=== PATIENT | male | born 1950 | race American Indian/Alaskan Native ===

== ENCOUNTER 2019-02-20 20:13 | Emergency (ER) | payer MEDICARE, OTHER ==
--- NOTE | 2019-02-20 20:43 | Event Note ---
ED Screening Note Date of service: 02/20/19 Time: 20:40 ED Screening Note: Pt complains of urinary retention x 7 hours he denies hx of BPH or oother prostate/bladder issues he states he has been dribbling with urination since 2 am last night denies hematuria +abdominal pain and distension This initial assessment/diagnostic orders/clinical plan/treatment(s) is/are subject to change based on patients health status, clinical progression and re- assessment by fellow clinical providers in the ED. Further treatment and workup at subsequent clinical providers discretion. Patient/guardian urged not to elope from the ED as their condition may be serious if not clinically assessed and managed. Initial orders include: bladder scan labs cath
[2019-02-20] MEDS ORDERED: oxyCODONE /ACETAMINOPHEN 5-325MG TAB PO ONE (20:47)
[2019-02-20 21:17] LABS: Basophils % (Auto) 0.3 % (0.0-1.8); Eosinophils % (Auto) 0.1 % (0.0-4.3); Hematocrit 36.9 % (35.5-45.6); Hemoglobin 12.4 gm/dl (11.8-15.2); Lymphocytes # (Auto) 0.4 K/mm3 (1.2-5.4); Lymphocytes % (Auto) 5.1 % (13.4-35.0); Mean Corpuscular HGB Conc 34 % (32-34); Mean Corpuscular Volume 86 fl (84-94); Monocytes # (Auto) 0.4 K/mm3 (0.0-0.8); Monocytes % (Auto) 5.8 % (0.0-7.3); Platelet Count 237 K/mm3 (140-440); Red Blood Count 4.29 M/mm3 (3.65-5.03); Red Cell Distribution Width 17.3 % (13.2-15.2)
[2019-02-20 21:32] LABS: Alanine Aminotransferase 17 units/L (7-56); Albumin 4.3 g/dL (3.9-5); BUN/Creatinine Ratio 14; Blood Urea Nitrogen 18 mg/dL (9-20); Calcium 9.6 mg/dL (8.4-10.2); Hemolysis Index 15
--- NOTE | 2019-02-21 00:20 | Emergency Department Report ---
ED Male HPI - General Chief complaint: Abdominal Pain Stated complaint: ABDOMINAL PAIN Time Seen by Provider: 02/20/19 20:37 Source: patient Mode of arrival: Wheelchair Limitations: No Limitations - History of Present Illness Initial comments: Patient is a 69-year-old male who states that early this morning he was having some urinary frequency with only a small amount of urine being able to past at a time. Patient states that approximately 1 PM he stopped being able to pass urine and several hours later started having severe lower abdominal pain and distention. Patient denies nausea vomiting diarrhea fevers or chills. Location: abdomen Radiation: none Severity scale (0 -10): 7 Consistency: constant - Related Data Previous Rx's Medication Instructions Recorded Last Taken Type Acetaminophen [Acetaminophen TAB] 325 mg PO Q6H PRN #30 tablet 02/25/17 Unknown Rx Amoxicillin/Potassium Clav 1 each PO BID #4 day 02/25/17 Unknown Rx [Augmentin 875-125 Tablet] Furosemide [Lasix TAB] 40 mg PO QDAY #30 tablet 02/25/17 Unknown Rx Nicotine [Habitrol] 14 mg TD QDAY #7 patch 02/25/17 Unknown Rx Pantoprazole [Protonix TAB] 40 mg PO QDAY #30 tablet 02/25/17 Unknown Rx Spironolactone [Aldactone] 25 mg PO QDAY #30 day 02/25/17 Unknown Rx carvediloL [Coreg] 3.125 mg PO BID #60 tablet 02/25/17 Unknown Rx lisinopriL [Zestril TAB] 2.5 mg PO QDAY #30 day 02/25/17 Unknown Rx Ciprofloxacin HCl [Ciprofloxacin 500 mg PO Q12HR #14 tab 02/21/19 Unknown Rx TAB] Tamsulosin [Flomax] 0.4 mg PO QHS #20 cap 02/21/19 Unknown Rx Allergies Allergy/AdvReac Type Severity Reaction Status Date / Time No Known Allergies Allergy Verified 02/22/17 08:28 ED Review of Systems ROS: Stated complaint: ABDOMINAL PAIN Other details as noted in HPI Comment: All other systems reviewed and negative ED Past Medical Hx - Past Medical History Previous Medical History?: Yes Hx Hypertension: Yes Additional medical history: GOUT - Surgical History Past Surgical History?: Yes Additional Surgical History: RT KNEE SURGURY 1995 - Social History Smoking Status: Current Every Day Smoker Substance Use Type: Alcohol - Medications Home Medications: Home Medications Medication Instructions Recorded Confirmed Last Taken Type Acetaminophen [Acetaminophen TAB] 325 mg PO Q6H PRN #30 tablet 02/25/17 Unknown Rx Amoxicillin/Potassium Clav 1 each PO BID #4 day 02/25/17 Unknown Rx [Augmentin 875-125 Tablet] Furosemide [Lasix TAB] 40 mg PO QDAY #30 tablet 02/25/17 Unknown Rx Nicotine [Habitrol] 14 mg TD QDAY #7 patch 02/25/17 Unknown Rx Pantoprazole [Protonix TAB] 40 mg PO QDAY #30 tablet 02/25/17 Unknown Rx Spironolactone [Aldactone] 25 mg PO QDAY #30 day 02/25/17 Unknown Rx carvediloL [Coreg] 3.125 mg PO BID #60 tablet 02/25/17 Unknown Rx lisinopriL [Zestril TAB] 2.5 mg PO QDAY #30 day 02/25/17 Unknown Rx Ciprofloxacin HCl [Ciprofloxacin 500 mg PO Q12HR #14 tab 02/21/19 Unknown Rx TAB] Tamsulosin [Flomax] 0.4 mg PO QHS #20 cap 02/21/19 Unknown Rx ED Physical Exam - General Limitations: No Limitations General appearance: alert, in no apparent distress - Head Head exam: Present: atraumatic, normocephalic - Eye Eye exam: Present: normal appearance, PERRL, EOMI - ENT ENT exam: Present: mucous membranes moist - Neck Neck exam: Present: normal inspection - Respiratory Respiratory exam: Present: normal lung sounds bilaterally. Absent: respiratory distress, wheezes, rales, rhonchi - Cardiovascular Cardiovascular Exam: Present: regular rate, normal rhythm, normal heart sounds. Absent: systolic murmur, diastolic murmur, rubs, gallop - GI/Abdominal GI/Abdominal exam: Present: soft, tenderness (suprapubic), normal bowel sounds. Absent: distended, guarding, rebound - Rectal Rectal exam: Present: deferred - Extremities Exam Extremities exam: Present: normal inspection - Back Exam Back exam: Present: normal inspection - Neurological Exam Neurological exam: Present: alert, oriented X3 - Psychiatric Psychiatric exam: Present: normal affect, normal mood - Skin Skin exam: Present: warm, dry, intact, normal color. Absent: rash ED Course Vital Signs 02/20/19 20:18 Temperature 97.9 F Pulse Rate 104 H Respiratory 18 Rate Blood Pressure 191/102 O2 Sat by Pulse 98 Oximetry ED Medical Decision Making - Lab Data Result diagrams: 02/20/19 20:59 02/20/19 20:59 - Medical Decision Making Patient is 69-year-old male who is presenting with urinary retent ion. Patient had a Palmer catheter placed here in the emergency department and 1200 mL of clear urine was drained. Patient has had a dramatic improvement of his discomfort. Patient be given a leg bag and DC'd home. Patient's kidney function is within normal limits. Critical care attestation.: If time is entered above; I have spent that time in minutes in the direct care of this critically ill patient, excluding procedure time. ED Disposition Clinical Impression: Acute urinary retention Disposition: DC-01 TO HOME OR SELFCARE Is pt being admited?: No Does the pt Need Aspirin: No Condition: Stable Instructions: Urinary Retention in Men (ED) Referrals: LUIGI DELGADILLO MD [Staff Physician] - 3-5 Days Time of Disposition: 00:20
[2019-02-21 01:02] LABS: Bacteria,Urine 1+ /HPF (Negative); Bilirubin,Urine NEG (Negative); Blood,Urine LG (Negative); Color,Urine Yellow (Yellow); Protein,Urine <15 mg/dL mg/dL (Negative); Urobilinogen,Urine < 2.0 mg/dL (<2.0)
[2019-02-21 01:11] VITALS: BP 148/85
== END 2019-02-21 01:15 | disposition home or self-care (01) ==
LOC: ED 20:13
DX: R33.8 Other retention of urine (principal); I10 Essential (primary) hypertension; F17.200 Nicotine dependence, unspecified, uncomplicated; Z98.890 Other specified postprocedural states; Z79.899 Other long term (current) drug therapy
CPT/HCPCS: 36415; 51702; 80053; 81001; 83690; 85025

== ENCOUNTER 2020-03-25 06:46 | Emergency (ER) | payer MEDICARE, OTHER ==
--- NOTE | 2020-03-25 07:10 | Event Note ---
ED Screening Note Date of service: 03/25/20 Time: 07:09 ED Screening Note: 70-year-old -[place] male presents to the emergency room for urinary retention. Patient reports he has a history of prostate enlargement. He states his last voided was at 8 PM last night. Patient reports some pelvic distention and discomfort. This initial assessment/diagnostic orders/clinical plan/treatment(s) is/are subject to change based on patients health status, clinical progression and re-assessment by fellow clinical providers in the ED. Further treatment and workup at subsequent clinical providers discretion. Patient/guardian urged not to elope from the ED as their condition may be serious if not clinically assessed and managed. Initial orders include:
[2020-03-25 09:38] LABS: Bilirubin,Urine NEG (Negative); Blood,Urine MOD (Negative); Color,Urine Straw (Yellow); Protein,Urine <15 mg/dL mg/dL (Negative); Urobilinogen,Urine < 2.0 mg/dL (<2.0); WBC,Urine < 1.0 /HPF (0.0-6.0)
[2020-03-25 09:39] LABS: Basophils % (Auto) 0.6 % (0.0-1.8); Eosinophils % (Auto) 0.1 % (0.0-4.3); Hematocrit 41.5 % (35.5-45.6); Hemoglobin 14.2 gm/dl (11.8-15.2); Lymphocytes # (Auto) 0.8 K/mm3 (1.2-5.4); Lymphocytes % (Auto) 23.1 % (13.4-35.0); Mean Corpuscular HGB Conc 34 % (32-34); Mean Corpuscular Volume 96 fl (84-94); Monocytes # (Auto) 0.5 K/mm3 (0.0-0.8); Monocytes % (Auto) 13.8 % (0.0-7.3); Platelet Count 200 K/mm3 (140-440); Red Blood Count 4.31 M/mm3 (3.65-5.03); Red Cell Distribution Width 13.6 % (13.2-15.2)
[2020-03-25 10:01] LABS: BUN/Creatinine Ratio 11; Blood Urea Nitrogen 12 mg/dL (9-20); Calcium 9.3 mg/dL (8.4-10.2); Hemolysis Index 0
--- NOTE | 2020-03-25 10:52 | Emergency Department Report ---
ED General Adult HPI - General Chief complaint: Urogenital-Male Stated complaint: PROSTATE PUI?: No Time Seen by Provider: 03/25/20 08:29 Source: patient Mode of arrival: Ambulatory Limitations: No Limitations - History of Present Illness Initial comments: 70-year-old -[place] male presents to the emergency room for urinary retention. Patient reports he has a history of prostate enlargement. He states his last voided was at 8 PM last night. Patient reports some pelvic distention and discomfort. This is a 70-year-old man who is a poor historian. He is able to tell me that he has had previous Palmer placement for urinary retention perhaps about a year ago. I am speculating but he probably went to see a urologist who removed his Palmer after 3 days. Patient cannot identify seeing a specialist. States he has had a PSA run by his family physician. He does not know how elevated this was. He does not report any supplemental problems. After Palmer placement she had a residual volume of greater than 800 cc. He is totally relieved of his discomfort. He appears appropriate for outpatient management now. -: Gradual, hour(s) Location: abdomen Radiation: periumbillical Severity scale (0 -10): 0 Quality: aching Consistency: constant Improves with: none Worsens with: none Associated Symptoms: denies other symptoms, other (Urinary retention) Treatments Prior to Arrival: other (Flomax) - Related Data Previous Rx's Medication Instructions Recorded Last Taken Type Acetaminophen [Acetaminophen TAB] 325 mg PO Q6H PRN #30 tablet 02/25/17 Unknown Rx Amoxicillin/Potassium Clav 1 each PO BID #4 day 02/25/17 Unknown Rx [Augmentin 875-125 Tablet] Furosemide [Lasix TAB] 40 mg PO QDAY #30 tablet 02/25/17 Unknown Rx Nicotine [Habitrol] 14 mg TD QDAY #7 patch 02/25/17 Unknown Rx Pantoprazole [Protonix TAB] 40 mg PO QDAY #30 tablet 02/25/17 Unknown Rx Spironolactone [Aldactone] 25 mg PO QDAY #30 day 02/25/17 Unknown Rx carvediloL [Coreg] 3.125 mg PO BID #60 tablet 02/25/17 Unknown Rx lisinopriL [Zestril TAB] 2.5 mg PO QDAY #30 day 02/25/17 Unknown Rx Ciprofloxacin HCl [Ciprofloxacin 500 mg PO Q12HR #14 tab 02/21/19 Unknown Rx TAB] Tamsulosin [Flomax] 0.4 mg PO QHS #20 cap 02/21/19 Unknown Rx Allergies Allergy/AdvReac Type Severity Reaction Status Date / Time No Known Allergies Allergy Verified 02/22/17 08:28 ED Review of Systems ROS: Stated complaint: PROSTATE Other details as noted in HPI Constitutional: denies: chills, fever Eyes: denies: eye pain, eye discharge, vision change ENT: denies: ear pain, throat pain Respiratory: denies: cough, shortness of breath Cardiovascular: denies: chest pain, palpitations Endocrine: no symptoms reported Gastrointestinal: denies: abdominal pain, nausea, diarrhea Genitourinary: as per HPI Musculoskeletal: denies: back pain Skin: denies: rash, lesions Neurological: denies: headache, weakness Psychiatric: denies: anxiety, depression Hematological/Lymphatic: denies: easy bleeding, easy bruising ED Past Medical Hx - Past Medical History Hx Hypertension: Yes Additional medical history: GOUT - Surgical History Additional Surgical History: RT KNEE SURGURY 1995 - Social History Smoking Status: Never Smoker Substance Use Type: None - Medications Home Medications: Home Medications Medication Instructions Recorded Confirmed Last Taken Type Acetaminophen [Acetaminophen TAB] 325 mg PO Q6H PRN #30 tablet 02/25/17 Unknown Rx Amoxicillin/Potassium Clav 1 each PO BID #4 day 02/25/17 Unknown Rx [Augmentin 875-125 Tablet] Furosemide [Lasix TAB] 40 mg PO QDAY #30 tablet 02/25/17 Unknown Rx Nicotine [Habitrol] 14 mg TD QDAY #7 patch 02/25/17 Unknown Rx Pantoprazole [Protonix TAB] 40 mg PO QDAY #30 tablet 02/25/17 Unknown Rx Spironolactone [Aldactone] 25 mg PO QDAY #30 day 02/25/17 Unknown Rx carvediloL [Coreg] 3.125 mg PO BID #60 tablet 02/25/17 Unknown Rx lisinopriL [Zestril TAB] 2.5 mg PO QDAY #30 day 02/25/17 Unknown Rx Ciprofloxacin HCl [Ciprofloxacin 500 mg PO Q12HR #14 tab 02/21/19 Unknown Rx TAB] Tamsulosin [Flomax] 0.4 mg PO QHS #20 cap 01/06/20 Unknown Rx ED Physical Exam - General Limitations: No Limitations General appearance: alert, in no apparent distress - Head Head exam: Present: atraumatic, normocephalic - Eye Eye exam: Present: normal appearance. Absent: scleral icterus - ENT ENT exam: Present: mucous membranes moist - Neck Neck exam: Present: normal inspection - Respiratory Respiratory exam: Present: normal lung sounds bilaterally. Absent: respiratory distress - Cardiovascular Cardiovascular Exam: Present: regular rate, normal rhythm. Absent: systolic murmur, diastolic murmur, rubs, gallop - GI/Abdominal GI/Abdominal exam: Present: soft, normal bowel sounds. Absent: distended, tenderness, guarding, rebound, rigid - Rectal Rectal exam: Present: deferred - Extremities Exam Extremities exam: Present: normal inspection - Back Exam Back exam: Present: normal inspection - Neurological Exam Neurological exam: Present: alert, oriented X3, CN II-XII intact. Absent: motor sensory deficit - Psychiatric Psychiatric exam: Present: normal affect, normal mood - Skin Skin exam: Present: warm, dry, intact, normal color. Absent: rash ED Course Vital Signs 03/25/20 03/25/20 07:08 09:09 Temperature 98.1 F 98.1 F Pulse Rate 89 82 Respiratory 16 17 Rate Blood Pressure 127/85 Blood Pressure 137/81 [Left] O2 Sat by Pulse 98 99 Oximetry - Reevaluation(s) Reevaluation #1: Patient's potassium was mildly elevated. I think little relief of his urinary obstruction this should spontaneously resolve. Follow-up is recommended. 03/25/20 10:51 ED Medical Decision Making - Lab Data Result diagrams: 03/25/20 08:54 03/25/20 08:54 Laboratory Results - last 24 hr 03/25/20 03/25/20 03/25/20 08:50 08:54 08:54 WBC 3.3 L RBC 4.31 Hgb 14.2 Hct 41.5 MCV 96 H MCH 33 H MCHC 34 RDW 13.6 Plt Count 200 Lymph % (Auto) 23.1 Bryan % (Auto) 13.8 H Eos % (Auto) 0.1 Baso % (Auto) 0.6 Lymph # (Auto) 0.8 L Bryan # (Auto) 0.5 Eos # (Auto) 0.0 Baso # (Auto) 0.0 Seg Neutrophils % 62.4 Seg Neutrophils # 2.0 Sodium 136 L Potassium 5.1 H Chloride 102.5 Carbon Dioxide 27 Anion Gap 12 BUN 12 Creatinine 1.1 Estimated GFR > 60 BUN/Creatinine Ratio 11 Glucose 114 H Calcium 9.3 Prostate Specific Ag Urine Color Straw Urine Turbidity Clear Urine pH 5.0 Ur Specific Ezel 1.006 Urine Protein <15 mg/dl Urine Glucose (UA) Neg Urine Ketones Neg Urine Blood Mod Urine Nitrite Neg Urine Bilirubin Neg Urine Urobilinogen < 2.0 Ur Leukocyte Esterase Neg Urine WBC (Auto) < 1.0 Urine RBC (Auto) 4.0 03/25/20 08:54 WBC RBC Hgb Hct MCV MCH MCHC RDW Plt Count Lymph % (Auto) Bryan % (Auto) Eos % (Auto) Baso % (Auto) Lymph # (Auto) Bryan # (Auto) Eos # (Auto) Baso # (Auto) Seg Neutrophils % Seg Neutrophils # Sodium Potassium Chloride Carbon Dioxide Anion Gap BUN Creatinine Estimated GFR BUN/Creatinine Ratio Glucose Calcium Prostate Specific Ag 14.92 H Urine Color Urine Turbidity Urine pH Ur Specific Ezel Urine Protein Urine Glucose (UA) Urine Ketones Urine Blood Urine Nitrite Urine Bilirubin Urine Urobilinogen Ur Leukocyte Esterase Urine WBC (Auto) Urine RBC (Auto) Critical care attestation.: If time is entered above; I have spent that time in minutes in the direct care of this critically ill patient, excluding procedure time. ED Disposition Clinical Impression: Bladder outlet obstruction Disposition: -01 TO HOME OR SELFCARE Is pt being admited?: No Does the pt Need Aspirin: No Condition: Stable Instructions: Indwelling Urinary Catheter Care, Adult Additional Instructions: Your potassium was slightly elevated. I think this will improve if you increase your fluid intake. This should be rechecked as well as your kidney function by the urologist. Your prostate test was over 14. See referral to [facility]. Referrals: PRIMARY MD KEESHA [Primary Care Provider] - 3-5 Days [facility] [Provider Group] - 2-3 Days Time of Disposition: 11:06
[2020-03-25 12:03] VITALS: BP 145/86
== END 2020-03-25 12:02 | disposition home or self-care (01) ==
LOC: ED 06:46
DX: N32.0 Bladder-neck obstruction (principal); R33.9 Retention of urine, unspecified; I10 Essential (primary) hypertension; Z98.890 Other specified postprocedural states; Z79.2 Long term (current) use of antibiotics; Z79.899 Other long term (current) drug therapy
CPT/HCPCS: 36415; 51702; 80048; 81001; 84153; 85025

== ENCOUNTER 2020-10-30 08:14 | Emergency (ER) | payer MEDICARE, OTHER ==
--- NOTE | 2020-10-30 09:20 | XRay Report ---
CHEST 2 VIEWS INDICATION: dyspnea. COMPARISON: 02/22/2017. FINDINGS: Support devices: None. Heart: Within normal limits. Lungs/Pleura: Increased interstitial markings greater towards the lung bases. No significant pleura l effusion. IMPRESSION: Increased interstitial markings. Edema edema is favored over atypical infection. Signer Name: Khadar Chaves MD Signed: 10/30/2020 9:16 AM Workstation Name: [id number]
[2020-10-30 09:47] LABS: Basophils % (Auto) 0.8 % (0.0-1.8); Eosinophils # (Auto) 0.1 K/mm3 (0.0-0.4); Eosinophils % (Auto) 1.4 % (0.0-4.3); Hematocrit 37.2 % (35.5-45.6); Hemoglobin 12.8 gm/dl (11.8-15.2); Lymphocytes # (Auto) 1.1 K/mm3 (1.2-5.4); Lymphocytes % (Auto) 21.4 % (13.4-35.0); Mean Corpuscular HGB Conc 34 % (32-34); Mean Corpuscular Volume 98 fl (84-94); Monocytes # (Auto) 0.7 K/mm3 (0.0-0.8); Platelet Count 218 K/mm3 (140-440); Red Blood Count 3.81 M/mm3 (3.65-5.03); Red Cell Distribution Width 14.1 % (13.2-15.2)
[2020-10-30 10:13] LABS: BUN/Creatinine Ratio 10; Blood Urea Nitrogen 11 mg/dL (9-20); Calcium 9.2 mg/dL (8.4-10.2); Hemolysis Index 3
--- NOTE | 2020-10-30 10:27 | Emergency Department Report ---
ED Shortness of Breath HPI - General Chief Complaint: Dyspnea/Respdistress Stated Complaint: EMMANUEL Time Seen by Provider: 10/30/20 08:50 Source: patient Mode of arrival: Ambulatory Limitations: No Limitations - History of Present Illness Initial Comments: Patient is a 70-year-old F [place] male with a past medical history of hypertension, CHF and gout who is presenting with 3 consecutive nights of shortness of breath. Patient states that while laying down he feels a smothering sensation in his chest which radiates from the center chest all the way up to his neck and feels as though he cannot breathe. States he has to get up and the symptoms usually resolve within 30 minutes. Denies chest pain nausea vomiting cough cold or congestion fevers or chills. Patient states there is no exertional component or pleuritic component. No precipitating factors that the patient can do the trigger the sensation. Patient states he has a history of acid reflux as well but is not on any medications. - Related Data Previous Rx's Medication Instructions Recorded Last Taken Type Acetaminophen [Acetaminophen TAB] 325 mg PO Q6H PRN #30 tablet 02/25/17 Unknown Rx Amoxicillin/Potassium Clav 1 each PO BID #4 day 02/25/17 Unknown Rx [Augmentin 875-125 Tablet] Furosemide [Lasix TAB] 40 mg PO QDAY #30 tablet 02/25/17 Unknown Rx Nicotine [Habitrol] 14 mg TD QDAY #7 patch 02/25/17 Unknown Rx Pantoprazole [Protonix TAB] 40 mg PO QDAY #30 tablet 02/25/17 Unknown Rx Spironolactone [Aldactone] 25 mg PO QDAY #30 day 02/25/17 Unknown Rx carvediloL [Coreg] 3.125 mg PO BID #60 tablet 02/25/17 Unknown Rx lisinopriL [Zestril TAB] 2.5 mg PO QDAY #30 day 02/25/17 Unknown Rx Ciprofloxacin HCl [Ciprofloxacin 500 mg PO Q12HR #14 tab 02/21/19 Unknown Rx TAB] Tamsulosin [Flomax] 0.4 mg PO QHS #20 cap 02/21/19 Unknown Rx Dicyclomine [Bentyl] 20 mg PO QID #10 tablet 10/30/20 Unknown Rx Pantoprazole [Protonix] 40 mg PO QDAY #30 tablet 10/30/20 Unknown Rx Allergies Allergy/AdvReac Type Severity Reaction Status Date / Time No Known Allergies Allergy Verified 02/22/17 08:28 ED Review of Systems ROS: Stated complaint: EMMANUEL Other details as noted in HPI Comment: All other systems reviewed and negative ED Past Medical Hx - Past Medical History Hx Hypertension: Yes Additional medical history: GOUT - Surgical History Additional Surgical History: RT KNEE SURGURY 1995 - Social History Smoking Status: Never Smoker Substance Use Type: None - Medications Home Medications: Home Medications Medication Instructions Recorded Confirmed Last Taken Type Acetaminophen [Acetaminophen TAB] 325 mg PO Q6H PRN #30 tablet 02/25/17 Unknown Rx Amoxicillin/Potassium Clav 1 each PO BID #4 day 02/25/17 Unknown Rx [Augmentin 875-125 Tablet] Furosemide [Lasix TAB] 40 mg PO QDAY #30 tablet 02/25/17 Unknown Rx Nicotine [Habitrol] 14 mg TD QDAY #7 patch 02/25/17 Unknown Rx Pantoprazole [Protonix TAB] 40 mg PO QDAY #30 tablet 02/25/17 Unknown Rx Spironolactone [Aldactone] 25 mg PO QDAY #30 day 02/25/17 Unknown Rx carvediloL [Coreg] 3.125 mg PO BID #60 tablet 02/25/17 Unknown Rx lisinopriL [Zestril TAB] 2.5 mg PO QDAY #30 day 02/25/17 Unknown Rx Ciprofloxacin HCl [Ciprofloxacin 500 mg PO Q12HR #14 tab 02/21/19 Unknown Rx TAB] Tamsulosin [Flomax] 0.4 mg PO QHS #20 cap 02/21/19 Unknown Rx Dicyclomine [Bentyl] 20 mg PO QID #10 tablet 10/30/20 Unknown Rx Pantoprazole [Protonix] 40 mg PO QDAY #30 tablet 10/30/20 Unknown Rx ED Physical Exam - General Limitations: No Limitations General appearance: alert, in no apparent distress - Head Head exam: Present: atraumatic, normocephalic - Eye Eye exam: Present: normal appearance - ENT ENT exam: Present: mucous membranes moist - Neck Neck exam: Present: normal inspection - Respiratory Respiratory exam: Present: normal lung sounds bilaterally. Absent: respiratory distress, wheezes, rales, rhonchi - Cardiovascular Cardiovascular Exam: Present: regular rate, normal rhythm, normal heart sounds. Absent: systolic murmur, diastolic murmur, rubs, gallop - GI/Abdominal GI/Abdominal exam: Present: soft, normal bowel sounds. Absent: distended, tenderness, guarding, rebound, rigid - Rectal Rectal exam: Present: deferred - Extremities Exam Extremities exam: Present: normal inspection - Back Exam Back exam: Present: normal inspection - Neurological Exam Neurological exam: Present: alert, oriented X3 - Psychiatric Psychiatric exam: Present: normal affect, normal mood - Skin Skin exam: Present: warm, dry, intact, normal color. Absent: rash ED Course Vital Signs 10/30/20 08:23 Temperature 98.5 F Pulse Rate 106 H Respiratory 20 Rate Blood Pressure 122/86 [Left] O2 Sat by Pulse 98 Oximetry ED Medical Decision Making - Lab Data Result diagrams: 10/30/20 09:30 10/30/20 09:30 Lab Results 10/30/20 10/30/20 Range/Units 09:30 09:30 WBC 5.3 (4.5-11.0) K/mm3 RBC 3.81 (3.65-5.03) M/mm3 Hgb 12.8 (11.8-15.2) gm/dl Hct 37.2 (35.5-45.6) % MCV 98 H (84-94) fl MCH 34 H (28-32) pg MCHC 34 (32-34) % RDW 14.1 (13.2-15.2) % Plt Count 218 (140-440) K/mm3 Lymph % (Auto) 21.4 (13.4-35.0) % [place] % (Auto) 14.0 H (0.0-7.3) % Eos % (Auto) 1.4 (0.0-4.3) % Baso % (Auto) 0.8 (0.0-1.8) % Lymph # (Auto) 1.1 L (1.2-5.4) K/mm3 [place] # (Auto) 0.7 (0.0-0.8) K/mm3 Eos # (Auto) 0.1 (0.0-0.4) K/mm3 Baso # (Auto) 0.0 (0.0-0.1) K/mm3 Seg Neutrophils % 62.4 (40.0-70.0) % Seg Neutrophils # 3.3 (1.8-7.7) K/mm3 Sodium 139 (137-145) mmol/L Potassium 4.3 (3.6-5.0) mmol/L Chloride 107.5 H (98-107) mmol/L Carbon Dioxide 28 (22-30) mmol/L Anion Gap 8 mmol/L BUN 11 (9-20) mg/dL Creatinine 1.1 (0.8-1.3) mg/dL Estimated GFR > 60 ml/min BUN/Creatinine Ratio 10 % Glucose 108 H (75-100) mg/dL Calcium 9.2 (8.4-10.2) mg/dL Troponin T < 0.010 (0.00-0.029) ng/mL - EKG Data -: EKG Interpreted by Ca - EKG Data 10/30/20 10:26 EKG shows a sinus tachycardia rate of 104. Grawn is leftward. Evidence of a right bundle branch block. LVH. T wave inversions in the lateral leads. Q waves inferiorly. Was compared to EKG from 2018 and there was quite a bit of artifact with that EKG but no significant changes. - Radiology Data Ordering Physician: BECKY LANE MD Date of Service: 10/30/20 Procedure(s): XR chest routine 2V Accession Number(s): [id number] cc: BECKY LANE MD Fluoro Time In Minutes: CHEST 2 VIEWS INDICATION: dyspnea. COMPARISON: 02/22/2017. FINDINGS: Support devices: None. Heart: Within normal limits. Lungs/Pleura: Increased interstitial markings greater towards the lung bases. No significant pleural effusion. IMPRESSION: Increased interstitial markings. Edema edema is favored over atypical infection. Signer Name: Khadar Chaves MD Signed: 10/30/2020 9:16 AM Workstation Name: [id number] - Medical Decision Making Patient is a 70-year-old F [place] male who is presenting with shortness of breath. Top of the differential is GERD. Patient is stating that he has a strange sensation in his throat when this occurs and occurs while laying flat. States that the symptoms can last up to 30 minutes but he states that usually it quite a bit less. Second differential be congestive heart failure. He does have some mild pulmonary edema on chest x-ray but his oxygen levels normal lungs are clear. Patient is on a diuretic and continue with his current regimen. We will add Protonix the patient will be given outpatient follow-up with his primary care physician. Critical care attestation.: If time is entered above; I have spent that time in minutes in the direct care of this critically ill patient, excluding procedure time. ED Disposition Clinical Impression: GERD (gastroesophageal reflux disease) Qualifiers: Esophagitis presence: without esophagitis Qualified Code(s): K21.9 - Gastro- esophageal reflux disease without esophagitis Pulmonary edema Qualifiers: Chronicity: chronic Qualified Code(s): J81.1 - Chronic pulmonary edema Disposition: 01 HOME / SELF CARE / HOMELESS Is pt being admited?: No Does the pt Need Aspirin: No Condition: Stable Instructions: Pulmonary Edema (ED), Gastroesophageal Reflux Disease, Adult, [id number] Additional Instructions: Please follow-up with your primary care physician. Please continue to take your water pill as there is a small amount of fluid on your lungs. This is similar to/less than the amount that you have had in the past. Time of Disposition: 10:33
[2020-10-30 12:02] VITALS: BP 133/94
--- NOTE | 2020-10-31 10:09 | Electrocardiograph Report ---
[facility] Test Date: 2020-10-30 Test Time: 08:39:37 Pat Name: CORRINE ISAAC Department: Room: Gender: M Inventory Control Assistant: JENNIFER : 1950 Requested By: BECKY LANE Order Number: [id number] Reading MD: Mike Carvalho Measurements Intervals [place] Rate: 104 P: 61 [place]: 127 QRS: -65 QRSD: 122 T: 103 QT: 378 QTc: 493 Interpretive Statements Sinus tachycardia Atrial premature complexes Left atrial enlargement RBBB and LAFB Left ventricular hypertrophy No previous ECG available for comparison Electronically Signed On 10-31-2020 10:09:08 EDT by Mike Carvalho
== END 2020-10-30 11:58 | disposition home or self-care (01) ==
LOC: ED 08:14
DX: K21.9 Gastro-esophageal reflux disease without esophagitis (principal); J81.1 Chronic pulmonary edema; I10 Essential (primary) hypertension
CPT/HCPCS: 36415; 71046; 80048; 84484; 85025; 93005; 99283

== ENCOUNTER 2021-01-14 13:19 | Emergency (ER) | payer MEDICARE, OTHER ==
--- NOTE | 2021-01-14 14:36 | Emergency Department Report ---
ED General Adult HPI - General Chief complaint: Dizziness Stated complaint: FEELING FUNNY Time Seen by Provider: 01/14/21 13:36 Source: patient Mode of arrival: Ambulatory Limitations: No Limitations - History of Present Illness Initial comments: The patient presents to the emergency department the chief complaint of shortness of breath that has been present for the last 2 days. Patient states that he had a pacemaker placed approximately 3 weeks ago. Patient states he is short of breath with walking or with laying down. Patient denies any chest pain or abdominal pain. -: Sudden Severity scale (0 -10): 0 Consistency: intermittent Improves with: none Worsens with: movement Associated Symptoms: denies other symptoms Treatments Prior to Arrival: none - Related Data Home Medications Medication Instructions Recorded Confirmed Last Taken Eplerenone [Inspra] 25 mg PO QDAY 12/10/20 12/10/20 12/07/20 Finasteride [Proscar] 5 mg PO QDAY 12/10/20 12/10/20 12/07/20 Previous Rx's Medication Instructions Recorded Last Taken Type Tamsulosin [Flomax] 0.4 mg PO QHS #20 cap 02/21/19 12/09/20 22:36 Rx Colchicine [Colcrys] 0.6 mg PO BID #20 tab 11/19/20 12/09/20 22:35 Rx Furosemide [Lasix TAB] 20 mg PO BID@0600,1800 30 Days #60 12/12/20 Unknown Rx tablet lisinopriL [Zestril TAB] 2.5 mg PO QDAY #15 tablet 12/12/20 Unknown Rx Allergies Allergy/AdvReac Type Severity Reaction Status Date / Time No Known Allergies Allergy Verified 12/10/20 12:11 ED Review of Systems ROS: Stated complaint: FEELING FUNNY Other details as noted in HPI Comment: All other systems reviewed and negative Constitutional: denies: chills, fever Eyes: denies: eye pain, eye discharge, vision change ENT: denies: ear pain, throat pain Respiratory: denies: cough, shortness of breath, wheezing Cardiovascular: denies: chest pain, palpitations Endocrine: no symptoms reported Gastrointestinal: denies: abdominal pain, nausea, diarrhea Genitourinary: denies: urgency, dysuria Musculoskeletal: denies: back pain, joint swelling, arthralgia Skin: denies: rash, lesions Neurological: denies: headache, weakness, paresthesias Psychiatric: denies: anxiety, depression Hematological/Lymphatic: denies: easy bleeding, easy bruising ED Past Medical Hx - Past Medical History Hx Hypertension: Yes Hx Heart Attack/AMI: No Hx Congestive Heart Failure: Yes Hx Diabetes: No Hx Liver Disease: No Hx Renal Disease: No Hx Asthma: No Hx COPD: No Additional medical history: GOUT - Surgical History Hx Pacemaker: No Hx Internal Defibrillator: Yes Additional Surgical History: RT KNEE SURGURY 1995. left wrist - Social History Smoking Status: Never Smoker - Medications Home Medications: Home Medications Medication Instructions Recorded Confirmed Last Taken Type Tamsulosin [Flomax] 0.4 mg PO QHS #20 cap 02/21/19 12/10/20 12/09/20 22:36 Rx Colchicine [Colcrys] 0.6 mg PO BID #20 tab 11/19/20 12/10/20 12/09/20 22:35 Rx Eplerenone [Inspra] 25 mg PO QDAY 12/10/20 12/10/20 12/07/20 History Finasteride [Proscar] 5 mg PO QDAY 12/10/20 12/10/20 12/07/20 History Furosemide [Lasix TAB] 20 mg PO BID@0600,1800 30 Days #60 12/12/20 Unknown Rx tablet lisinopriL [Zestril TAB] 2.5 mg PO QDAY #15 tablet 12/12/20 Unknown Rx ED Physical Exam - General Limitations: No Limitations General appearance: alert, in no apparent distress - Head Head exam: Present: atraumatic, normocephalic - Eye Eye exam: Present: normal appearance - ENT ENT exam: Present: mucous membranes moist - Neck Neck exam: Present: normal inspection - Respiratory Respiratory exam: Present: normal lung sounds bilaterally. Absent: respiratory distress - Cardiovascular Cardiovascular Exam: Present: normal rhythm, tachycardia. Absent: systolic murmur, diastolic murmur, rubs, gallop - GI/Abdominal GI/Abdominal exam: Present: soft, normal bowel sounds. Absent: distended, tenderness - Rectal Rectal exam: Present: deferred - Extremities Exam Extremities exam: Present: normal inspection - Back Exam Back exam: Present: normal inspection - Neurological Exam Neurological exam: Present: alert, oriented X3, CN II-XII intact. Absent: motor sensory deficit - Psychiatric Psychiatric exam: Present: normal affect, normal mood - Skin Skin exam: Present: warm, dry, intact, normal color. Absent: rash ED Course Vital Signs 01/14/21 01/14/21 01/14/21 13:23 13:32 13:45 Temperature 97.6 F Pulse Rate 50 L 113 H 113 H Pulse Rate [ Anterior Bilateral Throughout] Respiratory 16 20 16 Rate Respiratory Rate [Anterior Bilateral Throughout] Blood Pressure 109/79 118/68 O2 Sat by Pulse 97 99 Oximetry 01/14/21 01/14/21 01/14/21 14:00 14:31 14:45 Temperature Pulse Rate 112 H 109 H 113 H Pulse Rate [ Anterior Bilateral Throughout] Respiratory 21 18 13 Rate Respiratory Rate [Anterior Bilateral Throughout] Blood Pressure 104/79 104/79 104/79 O2 Sat by Pulse 99 100 97 Oximetry 01/14/21 01/14/21 01/14/21 16:25 16:31 16:45 Temperature Pulse Rate 115 H 118 H 107 H Pulse Rate [ Anterior Bilateral Throughout] Respiratory 25 H 22 33 H Rate Respiratory Rate [Anterior Bilateral Throughout] Blood Pressure 104/79 104/79 104/79 O2 Sat by Pulse 99 96 Oximetry 01/14/21 01/14/21 01/14/21 17:00 17:15 17:31 Temperature Pulse Rate 111 H 108 H 104 H Pulse Rate [ Anterior Bilateral Throughout] Respiratory 20 26 H 16 Rate Respiratory Rate [Anterior Bilateral Throughout] Blood Pressure 114/79 114/79 107/79 O2 Sat by Pulse 98 98 99 Oximetry 01/14/21 01/14/21 01/14/21 17:45 18:01 18:15 Temperature Pulse Rate 108 H 107 H 105 H Pulse Rate [ Anterior Bilateral Throughout] Respiratory 17 12 26 H Rate Respiratory Rate [Anterior Bilateral Throughout] Blood Pressure 114/79 113/78 107/79 O2 Sat by Pulse 98 99 99 Oximetry 01/14/21 01/14/21 18:31 19:06 Temperature Pulse Rate 111 H Pulse Rate [ 55 L Anterior Bilateral Throughout] Respiratory 17 Rate Respiratory 16 Rate [Anterior Bilateral Throughout] Blood Pressure 115/79 O2 Sat by Pulse 96 Oximetry ED Medical Decision Making - Lab Data Result diagrams: 01/14/21 14:02 01/14/21 14:01 Lab Results 01/14/21 01/14/21 01/14/21 Range/Units 14:01 14:01 14:01 WBC (4.5-11.0) K/mm3 RBC (3.65-5.03) M/mm3 Hgb (11.8-15.2) gm/dl Hct (35.5-45.6) % MCV (84-94) fl MCH (28-32) pg MCHC (32-34) % RDW (13.2-15.2) % Plt Count (140-440) K/mm3 Lymph % (Auto) (13.4-35.0) % Banner % (Auto) (0.0-7.3) % Eos % (Auto) (0.0-4.3) % Baso % (Auto) (0.0-1.8) % Lymph # (Auto) (1.2-5.4) K/mm3 Banner # (Auto) (0.0-0.8) K/mm3 Eos # (Auto) (0.0-0.4) K/mm3 Baso # (Auto) (0.0-0.1) K/mm3 Seg Neutrophils % (40.0-70.0) % Seg Neutrophils # (1.8-7.7) K/mm3 PT 14.8 (12.2-14.9) Sec. INR 1.05 (0.87-1.13) APTT 33.2 (24.2-36.6) Sec. Sodium 140 (137-145) mmol/L Potassium 4.3 (3.6-5.0) mmol/L Chloride 104.0 (98-107) mmol/L Carbon Dioxide 26 (22-30) mmol/L Anion Gap 14 mmol/L BUN 21 H (9-20) mg/dL Creatinine 1.4 H (0.8-1.3) mg/dL Estimated GFR > 60 ml/min BUN/Creatinine Ratio 15 % Glucose 100 (75-100) mg/dL Calcium 9.4 (8.4-10.2) mg/dL Phosphorus 3.00 (2.5-4.5) mg/dL Magnesium 2.00 (1.7-2.3) mg/dL Total Bilirubin 0.80 (0.1-1.2) mg/dL AST 13 (5-40) units/L ALT 17 (7-56) units/L Alkaline Phosphatase 142 H (35-129) units/L Troponin T < 0.010 (0.00-0.029) ng/mL NT-Pro-B Natriuret Pep 4863 H (0-900) pg/mL Total Protein 7.2 (6.3-8.2) g/dL Albumin 3.8 L (3.9-5) g/dL Albumin/Globulin Ratio 1.1 % 01/14/21 Range/Units 14:02 WBC 5.0 (4.5-11.0) K/mm3 RBC 4.23 (3.65-5.03) M/mm3 Hgb 12.3 (11.8-15.2) gm/dl Hct 38.3 (35.5-45.6) % MCV 91 (84-94) fl MCH 29 (28-32) pg MCHC 32 (32-34) % RDW 15.8 H (13.2-15.2) % Plt Count 153 (140-440) K/mm3 Lymph % (Auto) 37.8 H (13.4-35.0) % Banner % (Auto) 12.9 H (0.0-7.3) % Eos % (Auto) 1.3 (0.0-4.3) % Baso % (Auto) 0.4 (0.0-1.8) % Lymph # (Auto) 1.9 (1.2-5.4) K/mm3 Banner # (Auto) 0.6 (0.0-0.8) K/mm3 Eos # (Auto) 0.1 (0.0-0.4) K/mm3 Baso # (Auto) 0.0 (0.0-0.1) K/mm3 Seg Neutrophils % 47.6 (40.0-70.0) % Seg Neutrophils # 2.4 (1.8-7.7) K/mm3 PT (12.2-14.9) Sec. INR (0.87-1.13) APTT (24.2-36.6) Sec. Sodium (137-145) mmol/L Potassium (3.6-5.0) mmol/L Chloride (98-107) mmol/L Carbon Dioxide (22-30) mmol/L Anion Gap mmol/L BUN (9-20) mg/dL Creatinine (0.8-1.3) mg/dL Estimated GFR ml/min BUN/Creatinine Ratio % Glucose (75-100) mg/dL Calcium (8.4-10.2) mg/dL Phosphorus (2.5-4.5) mg/dL Magnesium (1.7-2.3) mg/dL Total Bilirubin (0.1-1.2) mg/dL AST (5-40) units/L ALT (7-56) units/L Alkaline Phosphatase (35-129) units/L Troponin T (0.00-0.029) ng/mL NT-Pro-B Natriuret Pep (0-900) pg/mL Total Protein (6.3-8.2) g/dL Albumin (3.9-5) g/dL Albumin/Globulin Ratio % - EKG Data -: EKG Interpreted by Me EKG shows normal: sinus rhythm Rate: tachycardia - Radiology Data Radiology results: report reviewed - Medical Decision Making Due to the patient's tachycardia and shortness of breath a CTA was done CTA was negative for PE does show emphysema-like changes Spoke to the patient's patient care associate who suggested that the patient received 40 mg of IV Lasix in the emergency department to take 20 mg at home twice daily Discussed CT findings with the patient he tells me that he has never been told that he has COPD but states that he stopped smoking 5 years ago and has smoked for greater than 30 years Patient had improvement of his symptoms after breathing treatment and Lasix Discussed the need to follow-up pulmonology as well as cardiology Critical Care Time: Yes Critical care time in (mins) excluding proc time.: 35 Critical care attestation.: If time is entered above; I have spent that time in minutes in the direct care of this critically ill patient, excluding procedure time. ED Disposition Clinical Impression: Dyspnea Disposition: 01 HOME / SELF CARE / HOMELESS Is pt being admited?: No Does the pt Need Aspirin: No Condition: Stable Instructions: Shortness of Breath, Adult Additional Instructions: return if worse Referrals: CLEO PRIETO MD [Primary Care Provider] - 3-5 Days RAVI SORENSON MD [Staff Physician] - 3-5 Days DANK BALDERRAMA MD [Staff Physician] - 3-5 Days Time of Disposition: 19:27
--- NOTE | 2021-01-14 14:46 | XRay Report ---
CHEST 1 VIEW INDICATION: sob. COMPARISON: 12/12/2019 FINDINGS: Support devices: Single lead pacemaker device remains in the same position Heart: Stable borderline to mild cardiomegaly Lungs/Pleura: The lungs remain clear with no evidence for infiltrate, pleural effusion or pneumothora x Additional findings: None. IMPRESSION: Stable borderline heart size. Lungs clear. No change since 12/11/2020. Signer Name: Zane Soto Jr, MD Signed: 01/14/2021 2:42 PM Workstation Name: [id number]
[2021-01-14] MEDS ORDERED: niCARdipine DRIP 40 MG/200 ML BAG IV ONE (14:48)
[2021-01-14] MEDS ORDERED: ALTEPLASE 100 MG INJ KIT IV ONE ×2 (14:50)
[2021-01-14] MEDS ORDERED: SODIUM CHLORIDE 0.9% 50 ML IVPB IV ONE (14:50)
[2021-01-14 14:55] LABS: Basophils % (Auto) 0.4 % (0.0-1.8); Eosinophils # (Auto) 0.1 K/mm3 (0.0-0.4); Eosinophils % (Auto) 1.3 % (0.0-4.3); Hematocrit 38.3 % (35.5-45.6); Hemoglobin 12.3 gm/dl (11.8-15.2); Lymphocytes # (Auto) 1.9 K/mm3 (1.2-5.4); Lymphocytes % (Auto) 37.8 % (13.4-35.0); Mean Corpuscular HGB Conc 32 % (32-34); Mean Corpuscular Volume 91 fl (84-94); Monocytes # (Auto) 0.6 K/mm3 (0.0-0.8); Monocytes % (Auto) 12.9 % (0.0-7.3); Platelet Count 153 K/mm3 (140-440); Red Blood Count 4.23 M/mm3 (3.65-5.03); Red Cell Distribution Width 15.8 % (13.2-15.2)
[2021-01-14 14:59] LABS: Alanine Aminotransferase 17 units/L (7-56); Albumin 3.8 g/dL (3.9-5); BUN/Creatinine Ratio 15; Blood Urea Nitrogen 21 mg/dL (9-20); Calcium 9.4 mg/dL (8.4-10.2); Hemolysis Index 1
[2021-01-14 15:06] LABS: INR 1.05 (0.87-1.13)
[2021-01-14 15:07] LABS: Partial Thromboplastin Time 33.2 Sec. (24.2-36.6)
--- NOTE | 2021-01-14 15:37 | Cat Scan Report ---
CTA chest with contrast INDICATION : PE. sob. chest pain. Omni 350 85cc. . TECHNIQUE: Axial imaging performed through the chest, with contrast bolus timing set to maximize opa cification of the pulmonary arteries. 3-plane MIP reformatted images were obtained. All CT scans at this location are performed using CT dose reduction for ALARA by means of automated exposure control. 85 mL of intravenous contrast administered. COMPARISON: CTA chest from 12/08/2020 FINDINGS: Bolus/PTE: Contrast bolus timing is adequate. There is diffuse respiratory motion artifact which sli ghtly limits the exam especially in the basilar subsegmental distribution. No filling defect is prese nt to suggest PTE. Mediastinum: Heart and great vessels appear normal. Shoddy hilar/mediastinal lymph nodes are noted with no pathologic enlargement. Lungs: There is moderate emphysema with no consolidation or pleural effusion. Upper abdomen: Limited imaging of the upper abdomen shows nothing acute. Bones: Degenerative changes in the spine with nothing acute. IMPRESSION: 1. Motion limited exam with no gross PTE identified. 2. Moderate emphysema with otherwise clear lungs. Signer Name: Tanner Perea MD Signed: 01/14/2021 3:32 PM Workstation Name: [id number]
[2021-01-14] MEDS ORDERED: FUROSEMIDE 40 MG/4 ML INJ IV ONE (17:08)
[2021-01-14] MEDS ORDERED: IPRATROPIUM/ALBUTEROL SULFATE 3 ML AMPUL.NEB IH ONE ×3 (17:08→18:51)
[2021-01-14 21:48] VITALS: BP 123/89
== END 2021-01-14 21:48 | disposition home or self-care (01) ==
LOC: ED 13:19
DX: R06.00 Dyspnea, unspecified (principal); I10 Essential (primary) hypertension; I50.9 Heart failure, unspecified; Z98.890 Other specified postprocedural states
CPT/HCPCS: 36415; 71045; 71275; 80053; 83735; 83880; 84100; 84484; 85025; 85610; 85730; 94640; 96374; 99291; J1940; Q9967; 94644

== ENCOUNTER 2021-03-10 14:03 | Emergency (ER) | payer MEDICARE, OTHER ==
[2021-03-10] MEDS ORDERED: FUROSEMIDE 40 MG/4 ML INJ IV ONE (14:53)
--- NOTE | 2021-03-10 14:53 | Emergency Department Report ---
ED Shortness of Breath HPI - General Chief Complaint: Dyspnea/Respdistress Stated Complaint: EMMANUEL Time Seen by Provider: 03/10/21 14:50 Source: patient Mode of arrival: Ambulatory Limitations: No Limitations - History of Present Illness Initial Comments: Patient presents with shortness of breath. This is been ongoing and progressive for him. The last couple of days, his symptoms worsened. He is supposed to see his accounts receivable clerk on Thursday but states that he just cannot sleep. He cannot lie flat because he becomes short of breath. He actually describes orthopnea. Patient is on a diuretic. He states he has been taking it. He does not know if he has been gaining weight or not. He does not weigh himself on a regular basis. Shortness of breath again is worse at night. Is worse with exertion. He states that when he is sitting still he feels somewhat better. There is no cough or fever. - Related Data Home Medications Medication Instructions Recorded Confirmed Last Taken Eplerenone [Inspra] 25 mg PO QDAY 12/10/20 12/10/20 12/07/20 Finasteride [Proscar] 5 mg PO QDAY 12/10/20 12/10/20 12/07/20 Previous Rx's Medication Instructions Recorded Last Taken Type Tamsulosin [Flomax] 0.4 mg PO QHS #20 cap 02/21/19 12/09/20 22:36 Rx Colchicine [Colcrys] 0.6 mg PO BID #20 tab 11/19/20 12/09/20 22:35 Rx lisinopriL [Zestril TAB] 2.5 mg PO QDAY #15 tablet 12/12/20 Unknown Rx Furosemide [Lasix TAB] 60 mg PO BID@0600,1800 5 Days 03/10/21 Unknown Rx tablet Allergies Allergy/AdvReac Type Severity Reaction Status Date / Time No Known Allergies Allergy Verified 12/10/20 12:11 ED Review of Systems ROS: Stated complaint: EMMANUEL Other details as noted in HPI Comment: All other systems reviewed and negative Constitutional: denies: fever Eyes: denies: eye pain ENT: denies: throat pain Respiratory: denies: cough Cardiovascular: denies: chest pain Endocrine: denies: unexplained weight loss Gastrointestinal: denies: abdominal pain Genitourinary: denies: dysuria Musculoskeletal: denies: back pain Skin: denies: rash Neurological: denies: headache Hematological/Lymphatic: denies: easy bruising ED Past Medical Hx - Past Medical History Previous Medical History?: Yes Hx Hypertension: Yes Hx Heart Attack/AMI: No Hx Congestive Heart Failure: Yes Hx Diabetes: No Hx Liver Disease: No Hx Renal Disease: No Hx Asthma: No Hx COPD: No Additional medical history: GOUT - Surgical History Hx Pacemaker: No Hx Internal Defibrillator: Yes Additional Surgical History: RT KNEE SURGURY 1995. left wrist - Family History Family history: hypertension - Social History Smoking Status: Former Smoker (Stopped smoking cigarettes 2015) Substance Use Type: None - Medications Home Medications: Home Medications Medication Instructions Recorded Confirmed Last Taken Type Tamsulosin [Flomax] 0.4 mg PO QHS #20 cap 02/21/19 12/10/20 12/09/20 22:36 Rx Colchicine [Colcrys] 0.6 mg PO BID #20 tab 11/19/20 12/10/20 12/09/20 22:35 Rx Eplerenone [Inspra] 25 mg PO QDAY 12/10/20 12/10/20 12/07/20 History Finasteride [Proscar] 5 mg PO QDAY 12/10/20 12/10/20 12/07/20 History lisinopriL [Zestril TAB] 2.5 mg PO QDAY #15 tablet 12/12/20 Unknown Rx Furosemide [Lasix TAB] 60 mg PO BID@0600,1800 5 Days 03/10/21 Unknown Rx tablet ED Physical Exam - General Limitations: No Limitations, Other (Pulse ox noted and low. This improves with deep inspiration.) General appearance: alert, in no apparent distress - Head Head exam: Present: atraumatic, normocephalic - Eye Eye exam: Present: normal appearance, EOMI - ENT ENT exam: Present: normal orophraynx, normal external ear exam - Neck Neck exam: Present: normal inspection. Absent: meningismus - Respiratory Respiratory exam: Present: rales (Bilateral). Absent: respiratory distress - Cardiovascular Cardiovascular Exam: Present: regular rate, normal rhythm - GI/Abdominal GI/Abdominal exam: Present: soft. Absent: distended, tenderness - Extremities Exam Extremities exam: Present: normal capillary refill - Back Exam Back exam: Absent: CVA tenderness (R), CVA tenderness (L) - Neurological Exam Neurological exam: Present: alert, oriented X3, CN II-XII intact, normal gait. Absent: motor sensory deficit - Psychiatric Psychiatric exam: Present: normal affect, normal mood - Skin Skin exam: Present: warm, dry ED Course Vital Signs 03/10/21 14:52 Temperature 97.9 F Pulse Rate 67 Respiratory 16 Rate Blood Pressure 105/61 [Right] O2 Sat by Pulse 94 Oximetry - Reevaluation(s) Reevaluation #1: 03/10/21 14:53 Labs ordered. Reevaluation #2: 03/10/21 18:16 Work-up was complete and the patient was discharged ED Medical Decision Making - Lab Data Result diagrams: 03/10/21 15:54 03/10/21 15:54 Rhythm strip: Normal sinus rhythm without ectopy. Monitor observe 10 seconds. - Radiology Data Radiology results: report reviewed - Medical Decision Making Patient presented with shortness of breath and was found to have evidence of congestive heart failure. This is acute on chronic condition. Patient has an appointment to see his accounts receivable clerk. There is no evidence of STEMI or NSTEMI. He does not have elevated troponin. There is no radiographic evidence to suggest pneumonia and clinically he does not strike me as pneumonia. He has no cough or fever. There is no bilateral infiltrative process that would be concerning for COVID given his current presentation. He was treated symptomatically and empirically with increased diuretic. Critical Care Time: No Critical care attestation.: If time is entered above; I have spent that time in minutes in the direct care of this critically ill patient, excluding procedure time. ED Disposition Clinical Impression: Pleural effusion CHF exacerbation Qualifiers: Heart failure type: combined systolic and diastolic Qualified Code(s): I50.43 - Acute on chronic combined systolic (congestive) and diastolic (congestive) heart failure Disposition: HOME / SELF CARE / HOMELESS Is pt being admited?: No Condition: Stable Instructions: Heart Failure, Self Care, Heart Failure Action Plan, Pleural Effusion Additional Instructions: Avoid salt completely. Continue your home medication. Follow-up with your accounts receivable clerk tomorrow. Take your diuretics as indicated. Prescriptions: Furosemide [Lasix TAB] 60 mg PO BID@0600,1800 5 Days tablet Referrals: PRIMARY CARE, [Primary Care Provider] - 3-5 Days
--- NOTE | 2021-03-10 15:36 | XRay Report ---
CHEST 2 VIEWS INDICATION / CLINICAL INFORMATION: chf. COMPARISON: 2 views of the chest from 03/01/2021. FINDINGS: SUPPORT DEVICES: Unchanged left ICD. HEART / MEDIASTINUM: Stable. LUNGS / PLEURA: Right lower lobe airspace opacities have developed in the interval. The lungs are oth erwise clear. No significant pleural effusion. No pneumothorax. ADDITIONAL FINDINGS: No significant additional findings. IMPRESSION: Findings concerning for right lower lobe pneumonia. Please correlate with the clinical findings. Signer Name: Stanley Naylor MD Signed: 03/10/2021 3:32 PM Workstation Name: [id number]
[2021-03-10 16:33] LABS: Basophils % (Auto) 0.5 % (0.0-1.8); Eosinophils % (Auto) 0.4 % (0.0-4.3); Hematocrit 36.6 % (35.5-45.6); Hemoglobin 11.8 gm/dl (11.8-15.2); Lymphocytes # (Auto) 1.5 K/mm3 (1.2-5.4); Lymphocytes % (Auto) 29.5 % (13.4-35.0); Mean Corpuscular HGB Conc 32 % (32-34); Mean Corpuscular Volume 90 fl (84-94); Monocytes # (Auto) 0.8 K/mm3 (0.0-0.8); Monocytes % (Auto) 15.2 % (0.0-7.3); Platelet Count 201 K/mm3 (140-440); Red Blood Count 4.09 M/mm3 (3.65-5.03); Red Cell Distribution Width 17.7 % (13.2-15.2)
[2021-03-10 16:47] LABS: BUN/Creatinine Ratio 18; Blood Urea Nitrogen 24 mg/dL (9-20); Calcium 9.2 mg/dL (8.4-10.2); Hemolysis Index 4
[2021-03-10 18:35] VITALS: BP 125/101
== END 2021-03-10 18:35 | disposition home or self-care (01) ==
LOC: ED 14:03
DX: J90 Pleural effusion, not elsewhere classified (principal); I50.43 Acute on chronic combined systolic (congestive) and diastolic (congestive) heart failure; I10 Essential (primary) hypertension; F17.200 Nicotine dependence, unspecified, uncomplicated
CPT/HCPCS: 36415; 71046; 80048; 83880; 84484; 85025; 99283; J1940

== ENCOUNTER 2021-08-21 12:54 | Inpatient (IN) | payer MEDICARE, OTHER ==
--- NOTE | 2021-08-21 13:52 | XRay Report ---
CHEST 2 VIEWS INDICATION / CLINICAL INFORMATION: Chest Pain. COMPARISON: 03/10/2021 FINDINGS: SUPPORT DEVICES: Stable position of cardiac ICD. HEART / MEDIASTINUM: No significant abnormality. LUNGS / PLEURA: No significant pulmonary or pleural abnormality. No pneumothorax. ADDITIONAL FINDINGS: No significant additional findings. IMPRESSION: 1. No acute findings. Signer Name: Miguel Verdin MD Signed: 08/21/2021 1:47 PM Workstation Name: [id number]
[2021-08-21 14:59] LABS: Hematocrit 42.3 % (35.5-45.6); Hemoglobin 14.2 gm/dl (11.8-15.2); Mean Corpuscular HGB Conc 33 % (32-34); Mean Corpuscular Volume 95 fl (84-94); Platelet Count 167 K/mm3 (140-440); Red Blood Count 4.47 M/mm3 (3.65-5.03); Red Cell Distribution Width 15.8 % (13.2-15.2)
[2021-08-21 15:22] LABS: Alanine Aminotransferase 13 units/L (7-56); Albumin 4.1 g/dL (3.9-5); BUN/Creatinine Ratio 13; Blood Urea Nitrogen 21 mg/dL (9-20); Calcium 9.6 mg/dL (8.4-10.2); Hemolysis Index 4
[2021-08-21 16:24] LABS: Basophils % (Manual) 0 % (0.0-1.8); Total Cells Counted 100
[2021-08-21 16:25] LABS: Anisocytosis Few; Macrocytosis Few; Poikilocytosis Few
[2021-08-21 16:26] LABS: Burr Cells Rare; Large Platelets Rare; Ovalocytes Rare; Platelet Estimate Consistent w Auto
--- NOTE | 2021-08-21 16:44 | Event Note ---
ED Screening Note ED Screening Note: CO R SIDED CP AND GOUT OF HAND This initial assessment/diagnostic orders/clinical plan/treatment(s) is/are subject to change based on patients health status, clinical progression and re- assessment by fellow clinical providers in the ED. Further treatment and workup at subsequent clinical providers discretion. Patient/guardian urged not to elope from the ED as their condition may be serious if not clinically assessed and managed. Initial orders include: RO ACS EVAL FOR GOUT LABS
[2021-08-21] MEDS ORDERED: COLCHICINE 0.6 MG TAB PO ONE (21:20)
[2021-08-21] MEDS ORDERED: predniSONE 20 MG TAB PO ONE (21:20)
--- NOTE | 2021-08-21 21:32 | Emergency Department Report ---
ED Chest Pain HPI - General Chief Complaint: Chest Pain Stated Complaint: CHEST PAIN/PRESSURE HAS DIFIBULATOR Time Seen by Provider: 08/21/21 17:03 Source: patient Mode of arrival: Ambulatory Limitations: No Limitations - History of Present Illness Initial Comments: Patient 71-year-old patient for Dr. Walker patient with history of CAD, hypertension, gout, BPH, GERD, AICD,, CHF. Patient presents for chest pain substernal radiating from left to right for the past week worsening PND. Symptoms are exacerbated by activity. Patient states dizziness for the past 2 days. Patient has secondary complaint for gout exacerbation to bilateral hands and fingers for the past 3 days. Patient states colchicine for same. However primary complaint today is chest pain and shortness of breath. Patient states AICD placed 1 year ago has not fired. Patient states he called primary care office today advised to present to ED for evaluation and admission for chest pain MD Complaint: chest pain Severity scale (0 -10): 8 - Related Data Home Medications Medication Instructions Recorded Confirmed Last Taken Eplerenone [Inspra] 25 mg PO QDAY 12/10/20 12/10/20 12/07/20 Finasteride [Proscar] 5 mg PO QDAY 12/10/20 12/10/20 12/07/20 Previous Rx's Medication Instructions Recorded Last Taken Type Tamsulosin [Flomax] 0.4 mg PO QHS #20 cap 02/21/19 12/09/20 22:36 Rx Colchicine [Colcrys] 0.6 mg PO BID #20 tab 11/19/20 12/09/20 22:35 Rx lisinopriL [Zestril TAB] 2.5 mg PO QDAY #15 tablet 12/12/20 Unknown Rx Furosemide [Lasix TAB] 60 mg PO BID@0600,1800 5 Days 03/10/21 Unknown Rx tablet Allergies Allergy/AdvReac Type Severity Reaction Status Date / Time No Known Allergies Allergy Verified 12/10/20 12:11 Heart Score - HEART Score History: Moderately suspicious EKG: Non-specific Age: > 65 Risk factors: > 3 risk factors or hx of atherosclerotic disease Troponin: < normal limit HEART Score: 6 - EKG Read Time Time EKG Completed: 13:50 EKG Read Time: 13:55 ED Review of Systems ROS: Stated complaint: CHEST PAIN/PRESSURE HAS DIFIBULATOR Other details as noted in HPI Constitutional: malaise. denies: chills, fever Eyes: denies: eye pain, eye discharge, vision change ENT: as per HPI Respiratory: shortness of breath, SOB with exertion, SOB at rest Cardiovascular: chest pain, dyspnea on exertion, paroxysmal nocturnal dyspnea Endocrine: no symptoms reported Gastrointestinal: denies: abdominal pain, nausea, vomiting, diarrhea Genitourinary: denies: urgency, dysuria Musculoskeletal: joint swelling, arthralgia. denies: back pain Skin: denies: rash, lesions Neurological: vertigo. denies: headache, weakness, paresthesias Psychiatric: denies: anxiety, depression ED Past Medical Hx - Past Medical History Previous Medical History?: Yes Hx Hypertension: Yes Hx Heart Attack/AMI: No Hx Congestive Heart Failure: Yes Hx Diabetes: No Hx GERD: Yes Hx Liver Disease: No Hx Renal Disease: No Hx Asthma: No Hx COPD: No Additional medical history: GOUT - Surgical History Past Surgical History?: Yes Hx Pacemaker: No Hx Internal Defibrillator: Yes Additional Surgical History: RT KNEE SURGURY 1995. left wrist - Social History Smoking Status: Former Smoker (Stopped smoking cigarettes 2015) Substance Use Type: None - Medications Home Medications: Home Medications Medication Instructions Recorded Confirmed Last Taken Type Tamsulosin [Flomax] 0.4 mg PO QHS #20 cap 02/21/19 12/10/20 12/09/20 22:36 Rx Colchicine [Colcrys] 0.6 mg PO BID #20 tab 11/19/20 12/10/20 12/09/20 22:35 Rx Eplerenone [Inspra] 25 mg PO QDAY 12/10/20 12/10/20 12/07/20 History Finasteride [Proscar] 5 mg PO QDAY 12/10/20 12/10/20 12/07/20 History lisinopriL [Zestril TAB] 2.5 mg PO QDAY #15 tablet 12/12/20 Unknown Rx Furosemide [Lasix TAB] 60 mg PO BID@0600,1800 5 Days 03/10/21 Unknown Rx tablet ED Physical Exam - General Limitations: No Limitations General appearance: alert, in no apparent distress - Head Head exam: Present: normocephalic, normal inspection - Eye Eye exam: Present: PERRL, EOMI Pupils: Present: normal accommodation - ENT ENT exam: Present: mucous membranes moist - Neck Neck exam: Present: normal inspection, full ROM. Absent: tenderness, lymphadenopathy - Respiratory Respiratory exam: Present: normal lung sounds bilaterally, chest wall tenderness (Left anterior lateral chest tenderness no crepitus no ecchymosis no step-off). Absent: respiratory distress, wheezes, rales, rhonchi, stridor, decreased breath sounds - Cardiovascular Cardiovascular Exam: Present: regular rate, normal rhythm, normal heart sounds. Absent: systolic murmur, diastolic murmur, rubs, gallop - GI/Abdominal GI/Abdominal exam: Present: soft, normal bowel sounds. Absent: distended, tenderness, guarding, rebound, rigid, bruit, hernia - Rectal Rectal exam: Present: deferred - Extremities Exam Extremities exam: Present: normal inspection - Back Exam Back exam: Present: normal inspection, full ROM. Absent: CVA tenderness (R), CVA tenderness (L) - Neurological Exam Neurological exam: Present: alert, oriented X3, CN II-XII intact, normal gait - Psychiatric Psychiatric exam: Present: normal affect - Skin Skin exam: Present: warm, dry, intact, normal color. Absent: rash ED Course Vital Signs 08/21/21 12:59 Temperature 98.3 F Pulse Rate 93 H Respiratory 20 Rate Blood Pressure 110/67 [Right] O2 Sat by Pulse 99 Oximetry TOMMY score - Tommy Score Age > 65: (1) Yes Aspirin use within the Past 7 Days: (0) No 3 or more CAD Risk Factors: (1) Yes 2 or more Angina events in past 24 hrs: (1) Yes Known CAD with more than 50% Stenosis: (1) Yes Elevated Cardiac Markers: (0) No ST Deviation Greater than 0.5mm: (0) No TOMMY Score: 4 ED Medical Decision Making - Lab Data Result diagrams: 08/21/21 13:56 08/21/21 13:56 Labs 08/21/21 08/21/21 08/21/21 13:56 13:56 20:19 WBC 6.7 RBC 4.47 Hgb 14.2 Hct 42.3 MCV 95 H MCH 32 MCHC 33 RDW 15.8 H Plt Count 167 Porter % (Auto) Book Illustrator Add Manual Diff Complete Total Counted 100 Seg Neuts % (Manual) 52.0 Band Neutrophils % 0 Lymphocytes % (Manual) 30.0 Reactive Lymphs % (Man) 3.0 Monocytes % (Manual) 13.0 H Eosinophils % (Manual) 2.0 Basophils % (Manual) 0 Metamyelocytes % 0 Myelocytes % 0 Promyelocytes % 0 Blast Cells % 0 Nucleated RBC % Not Reportable Seg Neutrophils # Man 3.5 Band Neutrophils # 0.0 Lymphocytes # (Manual) 2.0 Abs React Lymphs (Man) 0.2 Monocytes # (Manual) 0.9 H Eosinophils # (Manual) 0.1 Basophils # (Manual) 0.0 Metamyelocytes # 0.0 Myelocytes # 0.0 Promyelocytes # 0.0 Blast Cells # 0.0 WBC Morphology Not Reportable Hypersegmented Neuts Not Reportable Hyposegmented Neuts Not Reportable Hypogranular Neuts Not Reportable Smudge Cells Not Reportable Toxic Granulation Not Reportable Toxic Vacuolation Not Reportable Dohle Bodies Not Reportable Pelger-Huet Anomaly Not Reportable Thomas Rods Not Reportable Platelet Estimate Consistent w auto Clumped Platelets Not Reportable Plt Clumps, EDTA Not Reportable Large Platelets Rare Giant Platelets Not Reportable Platelet Satelliting Not Reportable Plt Morphology Comment Not Reportable RBC Morphology Not Reportable Dimorphic RBCs Not Reportable Polychromasia Not Reportable Hypochromasia Not Reportable Poikilocytosis Few Anisocytosis Few Microcytosis Not Reportable Macrocytosis Few Spherocytes Not Reportable Pappenheimer Bodies Not Reportable Sickle Cells Not Reportable Target Cells Not Reportable Tear Drop Cells Not Reportable Ovalocytes Rare Helmet Cells Not Reportable [place]iwng[place] Bodies Not Reportable [place] Rings Not Reportable [place] Cells Rare Bite Cells Not Reportable Crenated Cell Not Reportable Elliptocytes Not Reportable Acanthocytes (Spur) Not Reportable Rouleaux Not Reportable Hemoglobin C Crystals Not Reportable Schistocytes Not Reportable Malaria parasites Not Reportable Elio Bodies Not Reportable Hem Pathologist Commnt No PT INR APTT D-Dimer Sodium 141 Potassium 4.6 Chloride 108.4 H Carbon Dioxide 22 Anion Gap 15 BUN 21 H Creatinine 1.6 H Estimated GFR 52 BUN/Creatinine Ratio 13 Glucose 95 Calcium 9.6 Total Bilirubin 1.10 AST 15 ALT 13 Alkaline Phosphatase 148 H Troponin T < 0.010 < 0.010 Total Protein 7.6 Albumin 4.1 Albumin/Globulin Ratio 1.2 08/21/21 21:37 WBC RBC Hgb Hct MCV MCH MCHC RDW Plt Count Porter % (Auto) Add Manual Diff Total Counted Seg Neuts % (Manual) Band Neutrophils % Lymphocytes % (Manual) Reactive Lymphs % (Man) Monocytes % (Manual) Eosinophils % (Manual) Basophils % (Manual) Metamyelocytes % Myelocytes % Promyelocytes % Blast Cells % Nucleated RBC % Seg Neutrophils # Man Band Neutrophils # Lymphocytes # (Manual) Abs React Lymphs (Man) Monocytes # (Manual) Eosinophils # (Manual) Basophils # (Manual) Metamyelocytes # Myelocytes # Promyelocytes # Blast Cells # WBC Morphology Hypersegmented Neuts Hyposegmented Neuts Hypogranular Neuts Smudge Cells Toxic Granulation Toxic Vacuolation Dohle Bodies Pelger-Huet Anomaly Thomas Rods Platelet Estimate Clumped Platelets Plt Clumps, EDTA Large Platelets Giant Platelets Platelet Satelliting Plt Morphology Comment RBC Morphology Dimorphic RBCs Polychromasia Hypochromasia Poikilocytosis Anisocytosis Microcytosis Macrocytosis Spherocytes Pappenheimer Bodies Sickle Cells Target Cells Tear Drop Cells Ovalocytes Helmet Cells [place] Bodies [place] Rings [place] Cells Bite Cells Crenated Cell Elliptocytes Acanthocytes (Spur) Rouleaux Hemoglobin C Crystals Schistocytes Malaria parasites Elio Bodies Hem Pathologist Commnt PT 16.0 H INR 1.15 H APTT 35.2 D-Dimer 477.25 H Sodium Potassium Chloride Carbon Dioxide Anion Gap BUN Creatinine Estimated GFR BUN/Creatinine Ratio Glucose Calcium Total Bilirubin AST ALT Alkaline Phosphatase Troponin T Total Protein Albumin Albumin/Globulin Ratio - EKG Data EKG shows normal: sinus rhythm, QRS complexes Rate: normal - EKG Data When compared to previous EKG there are: previous EKG unavailable Interpretation: nonspecific ST-T wave obey, LVH EKG sinus rhythm atrial premature complexes left atrial hypertrophy nonspecific IVCD left ventricular hypertrophy ST elevation secondary to LVH. Nonspecific T wave abnormalities, no ST elevated NM interpreted by ED attending. 08/21/21 21:37 - Radiology Data Radiology results: report reviewed, image reviewed CHEST 2 VIEWS INDICATION / CLINICAL INFORMATION: Chest Pain. COMPARISON: 03/10/2021 FINDINGS: SUPPORT DEVICES: Stable position of cardiac ICD. HEART / MEDIASTINUM: No significant abnormality. LUNGS / PLEURA: No significant pulmonary or pleural abnormality. No pneumothorax. ADDITIONAL FINDINGS: No significant additional findings. IMPRESSION: 1. No acute findings. Signer Name: Miguel Verdin MD Signed: 08/21/2021 1:47 PM Workstation Name: [id number] Transcribed By: MICHELLE Dictated By: Miguel Verdin MD Electronically Authenticated By: Miguel Verdin MD Signed Date/Time: 08/21/211346 DD/ 46 TD/TT: CT ABDOMEN AND PELVIS WITHOUT CONTRAST INDICATION / CLINICAL INFORMATION: Flank pain, possible renal stone(s). TECHNIQUE: Axial CT images were obtained through the abdomen and pelvis without IV contrast. All CT scans at this location are performed using CT dose reduction for ALARA by means of automated exposure control. COMPARISON: None available. FINDINGS: LOWER CHEST: There is mild cardiomegaly with expected positioning of a cardiac pacing lead. No other significant abnormality. LIVER: Multiple probable cysts are seen including one located posteriorly along the hepatic dome measuring up to 1.2 cm on image 26 of series 2. No other significant abnormality. GALLBLADDER: No significant abnormality. BILE DUCTS: No significant abnormality. PANCREAS: No significant abnormality. SPLEEN: No significant abnormality. ADRENALS: No significant abnormality. RIGHT KIDNEY/URETER: No significant abnormality. LEFT KIDNEY/URETER: 2 probable cysts are seen along the lower pole of the left kidney measuring up to 2 cm. No other significant abnormality. STOMACH/SMALL BOWEL: No significant abnormality. COLON: No significant abnormality. APPENDIX: No significant abnormality. PERITONEUM: No free fluid. No free air. No fluid collection. LYMPH NODES: No significant adenopathy. VASCULATURE: There is mild generalized atherosclerosis without other significant abnormalities. URINARY BLADDER: No significant abnormality. REPRODUCTIVE ORGANS: The prostate gland is moderately enlarged. No other significant abnormality. ADDITIONAL FINDINGS: None. BONES: No acute findings. There is mild spondylosis. IMPRESSION: 1. No renal/ureteral stones or other acute findings to explain the patient's flank pain. 2. Additional findings as above. Signer Name: Stanley Naylor MD Signed: 08/21/2021 10:16 PM Workstation Name: [id number] Transcribed By: QUANG Dictated By: Stanley Naylor MD Electronically Authenticated By: Stanley Naylor MD Signed Date/Time: 08/21/212215 DD/ 12 TD/TT: CT angio chest INDICATION / CLINICAL INFORMATION: r/o PE. TECHNIQUE: Axial CT images were obtained through the chest after injection of 100 cc of Omnipaque 350 IV contrast. 3 plane MIP and/or 3D reconstructions were produced. All CT scans at this location are performed using CT dose reduction for ALARA by means of automated exposure control. COMPARISON: Chest radiograph from 08/21/2021. CTA from 01/14/2021. FINDINGS: PULMONARY ARTERIES: No central or segmental pulmonary embolus. THORACIC AORTA: Mild atherosclerotic calcification without acute abnormality. HEART: Heart is enlarged. No pericardial effusion. AICD lead terminates in the right ventricle. CORONARY ARTERY CALCIFICATION: No significant calcification. LYMPHADENOPATHY: No significant thoracic lymphadenopathy. LUNGS/PLEURA: Mild emphysema. No acute airspace disease. No pleural effusion or pneumothorax. OTHER FINDINGS: None. UPPER ABDOMEN: No acute findings. SKELETAL SYSTEM: Degenerative changes of the spine. No acute osseous findings. IMPRESSION: 1. No acute findings in the chest. No evidence of pulmonary embolism. 2. Cardiomegaly. No evidence of overt heart failure. 3. Mild emphysema. No acute interstitial or airspace disease. Signer Name: Daily Lobo MD Signed: 08/21/2021 10:56 PM Workstation Name: [id number] Transcribed By: JS Dictated By: DAILY LOBO MD Electronically Authenticated By: DAILY LOBO MD Signed Date/Time: 08/21/212255 DD/ 52 TD/TT: - Medical Decision Making Heart score is 6, TOMMY score is 4, EKG sinus rhythm PACs LVH nonspecific T wave abnormalities, no ST elevated NM interpreted by ED attending. Chest x-ray is normal no infiltrates no opacities, troponin is less than 0.01x2, gout pain is improving, however chest pain remains with deep inspiration and movement. Consulted ED attending recommendation admit to hospitalist diagnosis chest pain, patient pending BNP, pending UA. 2129 hospitalist consult reference admission diagnosis chest pain, recommendation CTA rule out PE call with results possible admission. Discussed same with patient patient verbalized agreement and understanding of same. CTA pending at this time, BNP pending at this time, D-dimer pending at this time, will follow-up with hospitalist upon results of CTA. Patient currently resting quietly with no acute distress. Patient admitted to hospitalist at this time diagnosis chest pain Critical care attestation.: If time is entered above; I have spent that time in minutes in the direct care of this critically ill patient, excluding procedure time. ED Disposition Clinical Impression: Chest pain Qualifiers: Chest pain type: unspecified Qualified Code(s): R07.9 - Chest pain, unspecified Gout flare Qualifiers: Gout site: hand Gout etiology: unspecified cause Laterality: unspecified laterality Qualified Code(s): M10.9 - Gout, unspecified Disposition: 09 ADMITTED INPATIENT Is pt being admited?: Yes Does the pt Need Aspirin: No Condition: Stable Instructions: Nonspecific Chest Pain, Adult Time of Disposition: 23:42
[2021-08-21 22:04] LABS: INR 1.15 (0.87-1.13)
[2021-08-21 22:05] LABS: Partial Thromboplastin Time 35.2 Sec. (24.2-36.6)
--- NOTE | 2021-08-21 22:21 | Cat Scan Report ---
CT ABDOMEN AND PELVIS WITHOUT CONTRAST INDICATION / CLINICAL INFORMATION: Flank pain, possible renal stone(s). TECHNIQUE: Axial CT images were obtained through the abdomen and pelvis without IV contrast. All CT scans at [facility] are performed using CT dose reduction for ALARA by means of automated exposure control. COMPARISON: None available. FINDINGS: LOWER CHEST: There is mild cardiomegaly with expected positioning of a cardiac pacing lead. No other significant abnormality. LIVER: Multiple probable cysts are seen including one located posteriorly along the hepatic dome alondra uring up to 1.2 cm on image 26 of series 2. No other significant abnormality. GALLBLADDER: No significant abnormality. BILE DUCTS: No significant abnormality. PANCREAS: No significant abnormality. SPLEEN: No significant abnormality. ADRENALS: No significant abnormality. RIGHT KIDNEY/URETER: No significant abnormality. LEFT KIDNEY/URETER: 2 probable cysts are seen along the lower pole of the left kidney measuring up to 2 cm. No other significant abnormality. STOMACH/SMALL BOWEL: No significant abnormality. COLON: No significant abnormality. APPENDIX: No significant abnormality. PERITONEUM: No free fluid. No free air. No fluid collection. LYMPH NODES: No significant adenopathy. VASCULATURE: There is mild generalized atherosclerosis without other significant abnormalities. URINARY BLADDER: No significant abnormality. REPRODUCTIVE ORGANS: The prostate gland is moderately enlarged. No other significant abnormality. ADDITIONAL FINDINGS: None. BONES: No acute findings. There is mild spondylosis. IMPRESSION: 1. No renal/ureteral stones or other acute findings to explain the patient's flank pain. 2. Additional findings as above. Signer Name: Stanley Naylor MD Signed: 08/21/2021 10:16 PM Workstation Name: [id number]
--- NOTE | 2021-08-21 22:27 | History and Physical Report ---
History of Present Illness Date of examination: 08/21/21 Date of admission: 08/21/2021 Chief complaint: Chest Pain History of present illness: 71-year-old -[place] male with known history of coronary artery disease, hypertension, gout, GERD, AICD in place and CHF presenting to the emergency room today complaining of chest pain. Chest pain is said to be substernal and has been ongoing on and off for the past 1 week. Pain initially was on the left side and later radiated towards the right side of his chest. Chest pain is worse on minimal exertion. He has had some occasional dizziness but denies any headache. He has had some associated shortness of breath. Patient has an AICD in place which has not malfunctioned. He denies any nausea vomiting and denies any abdominal pain. Patient informed his primary care physician's office about his chest pain today and was encouraged to report to the emergency room for further evaluation. Patient takes colchicine for gout and indicates that he has had some right wrist pain. He denies any fall. Denies any fever or chills. Work-up in the emergency room today, chest x-ray was unremarkable. EKG was w ithin normal limits. Troponin x2 has also been negative so far. Upon review of patient's record he had an echocardiogram in November 2020 and had an EF of 20 to 25%. Stress test done in 2017 was unremarkable. Patient being admitted for chest pain evaluation. Past History Past Medical History: heart failure, hypertension, hyperlipidemia, other (Gout) Past Surgical History: Other (AICD placement, Right knee surgery in 1995) Social history: smoking (Former Smoker) Family history: no significant family history Medications and Allergies Allergies Allergy/AdvReac Type Severity Reaction Status Date / Time No Known Allergies Allergy Verified 12/10/20 12:11 Home Medications Medication Instructions Recorded Confirmed Last Taken Type Tamsulosin [Flomax] 0.4 mg PO QHS #20 cap 02/21/19 12/10/20 12/09/20 22:36 Rx Colchicine [Colcrys] 0.6 mg PO BID #20 tab 11/19/20 12/10/20 12/09/20 22:35 Rx Eplerenone [Inspra] 25 mg PO QDAY 12/10/20 12/10/20 12/07/20 History Finasteride [Proscar] 5 mg PO QDAY 12/10/20 12/10/20 12/07/20 History lisinopriL [Zestril TAB] 2.5 mg PO QDAY #15 tablet 12/12/20 Unknown Rx Furosemide [Lasix TAB] 60 mg PO BID@0600,1800 5 Days 03/10/21 Unknown Rx tablet Review of Systems Constitutional: no fever, no chills Ears, nose, mouth and throat: no nasal congestion, no sore throat Cardiovascular: chest pain, palpitations Respiratory: shortness of breath, no cough Gastrointestinal: no abdominal pain, no nausea, no vomiting, no diarrhea Genitourinary Male: no dysuria, no hematuria, no nocturia Musculoskeletal: no neck pain, no low back pain Integumentary: no rash, no pruritis Neurological: no weakness, no numbness, no headaches, no confusion Psychiatric: no anxiety, no depression Endocrine: no polyphagia, no polydipsia, no polyuria, no nocturia Exam - Constitutional Vitals: Temp Pulse Resp BP Pulse Ox 98.3 F 93 H 20 110/67 99 08/21/21 12:59 08/21/21 12:59 08/21/21 12:59 08/21/21 12:59 08/21/21 12:59 General appearance: Present: no acute distress, well-nourished - EENT Eyes: Present: PERRL, EOM intact. Absent: scleral icterus ENT: hearing intact, clear oral mucosa, dentition normal - Neck Neck: Present: supple, normal ROM - Respiratory Respiratory effort: normal Respiratory: bilateral: CTA - Cardiovascular Rhythm: regular Heart Sounds: Present: S1 & S2. Absent: gallop, systolic murmur, diastolic mu rmur, rub, click Details: AICD in place - Extremities Extremities: no ischemia, pulses intact, pulses symmetrical, No edema, normal te mperature, normal color, Full ROM Peripheral Pulses: within normal limits - Abdominal General gastrointestinal: Present: soft, non-tender, non-distended, normal bowel sounds. Absent: mass - Integumentary Integumentary: Present: clear, warm, dry, normal turgor. Absent: rash - Musculoskeletal Musculoskeletal: strength equal bilaterally - Psychiatric Psychiatric: appropriate mood/affect, intact judgment & insight, memory intact, cooperative - Neurologic Neurologic: CNII-XII intact, no focal deficits, moves all extremities HEART Score - HEART Score History: Moderately suspicious EKG: Non-specific Age: > 65 Risk factors: > 3 risk factors or hx of atherosclerotic disease Troponin: Troponin T < 0.010 ng/mL (0.00-0.029) 08/21/21 20:19 Troponin: < normal limit HEART Score: 6 Results - Labs CBC & Chem 7: 08/22/21 05:13 08/22/21 05:13 Labs: Abnormal lab results 08/21/21 08/21/21 08/21/21 Range/Units 13:56 13:56 21:37 MCV 95 H (84-94) fl RDW 15.8 H (13.2-15.2) % Monocytes % (Manual) 13.0 H (0.0-7.3) % Monocytes # (Manual) 0.9 H (0.0-0.8) K/mm3 PT 16.0 H (12.2-14.9) Sec. INR 1.15 H (0.87-1.13) D-Dimer 477.25 H (0-234) ng/mlDDU Chloride 108.4 H (98-107) mmol/L BUN 21 H (9-20) mg/dL Creatinine 1.6 H (0.8-1.3) mg/dL Alkaline Phosphatase 148 H (35-129) units/L Assessment and Plan Assessment: 1.Chest Pain 2.Gout- on colchicine 3.Hypertension 4. GERD 5. History of CHF Plan: 1. Patient admitted and placed on telemetry. We will check serial cardiac enzymes. 2. Patient started on daily aspirin. Replace sublingual nitroglycerin and IV morphine as needed for chest pain. 3. Patient be scheduled for stress test. 4. We will resume routine home medications once reconciled. Patient takes colchicine for his gout. 5. We will request cardiology evaluation. DVT prophylaxis: Subcutaneous heparin Code Status: Full Code
--- NOTE | 2021-08-21 23:01 | Cat Scan Report ---
CT angio chest INDICATION / CLINICAL INFORMATION: r/o PE. TECHNIQUE: Axial CT images were obtained through the chest after injection of 100 cc of Omnipaque 350 IV contrast. 3 plane MIP and/or 3D reconstructions were produced. All CT scans at this location are performed using CT dose reduction for ALARA by means of automated exposure control. COMPARISON: Chest radiograph from 08/21/2021. CTA from 01/14/2021. FINDINGS: PULMONARY ARTERIES: No central or segmental pulmonary embolus. THORACIC AORTA: Mild atherosclerotic calcification without acute abnormality. HEART: Heart is enlarged. No pericardial effusion. AICD lead terminates in the right ventricle. CORONARY ARTERY CALCIFICATION: No significant calcification. LYMPHADENOPATHY: No significant thoracic lymphadenopathy. LUNGS/PLEURA: Mild emphysema. No acute airspace disease. No pleural effusion or pneumothorax. OTHER FINDINGS: None. UPPER ABDOMEN: No acute findings. SKELETAL SYSTEM: Degenerative changes of the spine. No acute osseous findings. IMPRESSION: 1. No acute findings in the chest. No evidence of pulmonary embolism. 2. Cardiomegaly. No evidence of overt heart failure. 3. Mild emphysema. No acute interstitial or airspace disease. Signer Name: James Lobo MD Signed: 08/21/2021 10:56 PM Workstation Name: [id number]
[2021-08-21] MEDS ORDERED: ONDANSETRON 4 MG/2 ML INJ IV PRN (23:22)
[2021-08-21] MEDS ORDERED: NITROGLYCERIN 0.4 MG TAB SUBL SL PRN (23:22)
[2021-08-21] MEDS ORDERED: traMADol 50 MG TAB PO PRN (23:22)
[2021-08-21] MEDS ORDERED: ACETAMINOPHEN 325 MG TAB PO PRN ×2 (23:22)
[2021-08-21] MEDS ORDERED: MORPHINE 4 MG/1 ML INJ IV PRN ×2 (23:22)
[2021-08-21] MEDS ORDERED: MORPHINE 2 MG/1 ML INJ IV PRN (23:22)
[2021-08-21] MEDS ORDERED: MAGNESIUM HYDROXIDE (MOM) ORAL LIQD UDC PO PRN (23:22)
[2021-08-21 23:55] LABS: Hyaline Casts,Urine 1 /LPF; Mucus,Urine FEW /HPF
[2021-08-21 23:58] LABS: Bilirubin,Urine Negative (Negative); Blood,Urine Negative (Negative); Color,Urine Straw (Yellow); Urobilinogen,Urine < 2.0 mg/dL (<2.0)
[2021-08-22 00:11] LABS: BUN/Creatinine Ratio 16; Blood Urea Nitrogen 21 mg/dL (9-20); Calcium 9.3 mg/dL (8.4-10.2); Hemolysis Index 12
[2021-08-22 05:24] LABS: Basophils % (Auto) 0.4 % (0.0-1.8); Eosinophils % (Auto) 0.3 % (0.0-4.3); Hematocrit 41.2 % (35.5-45.6); Hemoglobin 13.4 gm/dl (11.8-15.2); Lymphocytes # (Auto) 0.7 K/mm3 (1.2-5.4); Lymphocytes % (Auto) 11.5 % (13.4-35.0); Mean Corpuscular HGB Conc 33 % (32-34); Mean Corpuscular Volume 95 fl (84-94); Monocytes # (Auto) 0.2 K/mm3 (0.0-0.8); Platelet Count 168 K/mm3 (140-440); Red Blood Count 4.34 M/mm3 (3.65-5.03); Red Cell Distribution Width 15.4 % (13.2-15.2)
[2021-08-22 05:42] LABS: BUN/Creatinine Ratio 18; Blood Urea Nitrogen 22 mg/dL (9-20); Calcium 9.3 mg/dL (8.4-10.2); Hemolysis Index 1
[2021-08-22] MEDS ORDERED: REGADENOSON 0.4 MG/5 ML INJ IV ONE ×2 (08:28→08:31)
[2021-08-22 09:21] VITALS: BP 106/73
[2021-08-22] MEDS ORDERED: ASPIRIN EC 325 MG TAB PO SCH (10:00)
--- NOTE | 2021-08-22 13:15 | Discharge Summary ---
Providers - Providers Date of Admission: 08/21/21 23:22 Date of discharge: 08/22/21 Attending physician: ORACIO IGNACIO 08/21/21 Consult to Cardiac Rehabilitation [CONS] Routine Reason For Exam: Phase I 08/21/21 23:25 Consult to Cardiology [CONS] Routine Consulting Provider: BUBBA DICKSON Reason For Exam: chest pain Primary care physician: GETACHEW ROLDAN Hospitalization Condition: Stable Disposition: 01 HOME / SELF CARE / HOMELESS Final Discharge Diagnosis (Prints w/discharge instructions): -- Chest pain, likely from GERD. Chronic systolic heart failure. AICD in situ. Hypertension. Gout. History of tobacco abuse. Tricuspid regurgitation. Mitral regurgitation Time spent for discharge: 34 minutes Core Measure Documentation - Palliative Care Palliative Care/ Comfort Measures: Not Applicable - Core Measures Any of the following diagnoses?: none Exam - Constitutional Vitals: Temp Pulse Resp BP Pulse Ox 98.0 F 92 H 18 106/73 97 08/22/21 06:08 08/22/21 08:21 08/22/21 08:01 08/22/21 08:21 08/22/21 08:21 Plan Activity: advance as tolerated Weight Bearing Status: Weight Bear as Tolerated Diet: low fat, low salt Additional Instructions: Patient has been scheduled for stress test on 08/30/20172021 at 9:15 AM in our [place] location. Phone #[phone]. Patient has a follow-up appointment with Dr. Burleson 09/18/2021 at 2 PM in our [place] location. Follow up with: GETACHEW ROLDAN MD [Primary Care Provider] - 7 Days
--- NOTE | 2021-08-22 13:22 | Consultation ---
History of Present Illness Consult date: 08/22/21 Requesting physician: LORENA JENKINS Consult reason: chest pain History of present illness: Patient is a 71-year-old male with a past medical history of chronic systolic heart failure s/p AICD, left anterior fascicular block, mitral regurgitation, Primary hypertension, gout, tobacco abuse, tricuspid regurgitation who presented with complaint of right-sided chest pain x3 days. Patient reports that Thursday night he developed this right-sided chest pain which he described as sharp, worse with inspiration, and worse with palpation. He states the pain started radiating from his right side to his left. Patient states he woke up Thursday and still had pain. He called his PCP who instructed him to go to the ED for further evaluation. Patient does report that he is having active gout flareup in his right arm and reports that he thinks this is what his pain is like. He states it does not feel like my heart. He states that the pain moves around his body. At time of interview patient reports that his pain has subsided. Patient denies shortness of breath, current chest pain, nausea, vomi ting, diaphoresis, lightheadedness or palpitations. Patient is followed by Dr. Burleson of our practice. Cardiology is consulted for chest. Past History Past Medical History: heart failure, hypertension, hyperlipidemia, other (Gout) Past Surgical History: Other (AICD placement, Right knee surgery in 1995) Social history: smoking (Former Smoker) Family history: CAD, hypertension Medications and Allergies Allergies Allergy/AdvReac Type Severity Reaction Status Date / Time No Known Allergies Allergy Verified 12/10/20 12:11 Home Medications Medication Instructions Recorded Confirmed Last Taken Type Tamsulosin [Flomax] 0.4 mg PO QHS #20 cap 02/21/19 08/22/21 12/09/20 22:36 Rx Colchicine [Colcrys] 0.6 mg PO BID #20 tab 11/19/20 08/22/21 12/09/20 22:35 Rx Eplerenone [Inspra] 25 mg PO QDAY 12/10/20 08/22/21 12/07/20 History Finasteride [Proscar] 5 mg PO QDAY 12/10/20 08/22/21 12/07/20 History Empagliflozin [Jardiance] 10 mg PO DAILY 08/22/21 08/22/21 Unknown History Furosemide [Lasix TAB] 80 mg PO BID@0600,1800 08/22/21 08/22/21 Unknown History Potassium Chloride [K-Dur] 20 meq PO BID 08/22/21 08/22/21 Unknown History Valsartan [Diovan] 40 mg PO BID 08/22/21 08/22/21 Unknown History carvediloL 12.5 mg PO BID 08/22/21 08/22/21 Unknown History Active Meds: Active Medications Acetaminophen (Acetaminophen 325 Mg Tab) 650 mg PO Q4H PRN PRN Reason: Pain MILD(1-3)/Fever >100.5/DHILLON Aspirin (Aspirin Ec 325 Mg Tab) 325 mg PO QDAY [facility] Last Admin: 08/22/21 12:17 Dose: 325 mg Colchicine (Colchicine 0.6 Mg Tab) 0.6 mg PO BID [facility] Finasteride (Finasteride 5 Mg Tab) 5 mg PO QDAY [facility] Furosemide (Furosemide 20 Mg Tab) 80 mg PO BID@0600,1800 [facility] Magnesium Hydroxide (Magnesium Hydroxide (Mom) Oral Liqd Udc) 30 ml PO Q4H PRN PRN Reason: Constipation Miscellaneous Medication (Empagliflozin [Jardiance]) 10 mg PO DAILY [facility] Miscellaneous Medication (Eplerenone [Inspra]) 25 mg PO QDAY [facility] Morphine Sulfate (Morphine 2 Mg/1 Ml Inj) 2 mg IV Q4H PRN PRN Reason: Pain, Moderate (4-6) Last Admin: 08/22/21 02:07 Dose: 2 mg Morphine Sulfate (Morphine 4 Mg/1 Ml Inj) 4 mg IV Q4H PRN PRN Reason: Pain , Severe (7-10) Morphine Sulfate (Morphine 4 Mg/1 Ml Inj) 2 mg IV Q5MIN PRN PRN Reason: Chest Pain unrelieved by NTG Nitroglycerin (Nitroglycerin 0.4 Mg Tab Subl) 0.4 mg SL Q5M PRN PRN Reason: Chest Pain Ondansetron HCl (Ondansetron 4 Mg/2 Ml Inj) 4 mg IV Q8H PRN PRN Reason: Nausea And Vomiting Potassium Chloride (Potassium Chloride Er 10 Meq Tab) 20 meq PO BID [facility] Sodium Chloride (Sodium Chloride 0.9% 10 Ml Flush Syringe) 10 ml IV BID [facility] Last Admin: 08/22/21 12:19 Dose: 10 ml Sodium Chloride (Sodium Chloride 0.9% 10 Ml Flush Syringe) 10 ml IV PRN PRN PRN Reason: LINE FLUSH Tamsulosin HCl (Tamsulosin 0.4 Mg Cap) 0.4 mg PO QHS SHASHI Tramadol HCl (Tramadol 50 Mg Tab) 50 mg PO Q6H PRN PRN Reason: Pain, Moderate (4-6) Review of Systems Constitutional: no weight loss, no weight gain Ears, nose, mouth and throat: no nasal discharge, no sinus pressure, no sinus pain Cardiovascular: no chest pain, no orthopnea, no shortness of breath, no dyspnea on exertion Respiratory: no shortness of breath, no dyspnea on exertion Gastrointestinal: no abdominal pain, no nausea, no vomiting Musculoskeletal: no neck stiffness, no neck pain, no shooting arm pain Integumentary: no rash, no pruritis, no redness Neurological: no head injury, no transient paralysis Psychiatric: no anxiety, no memory loss Endocrine: no cold intolerance, no heat intolerance Hematologic/Lymphatic: no easy bruising, no easy bleeding Physical Examination Vital Signs Temp Pulse Resp BP Pulse Ox 98.3 F 93 H 20 110/67 99 08/21/21 12:59 08/21/21 12:59 08/21/21 12:59 08/21/21 12:59 08/21/21 12:59 General appearance: no acute distress Neck: Positive: trachea midline Cardiac: Positive: Reg Rate and Rhythm Lungs: Positive: Normal Breath Sounds Neuro: Positive: Grossly Intact Abdomen: Positive: Soft, Active Bowel Sounds Skin: Negative: Rash, Suspicious Lesions, Ulceration Extremities: Present: upper extr. pulses. Absent: edema Results 08/22/21 05:13 08/22/21 05:13 Cardiac Enzymes 08/21/21 Range/Units 13:56 AST 15 (5-40) units/L Coagulation 08/21/21 Range/Units 21:37 PT 16.0 H (12.2-14.9) Sec. INR 1.15 H (0.87-1.13) APTT 35.2 (24.2-36.6) Sec. CBC 08/21/21 08/22/21 Range/Units 13:56 05:13 WBC 6.7 6.2 (4.5-11.0) K/mm3 RBC 4.47 4.34 (3.65-5.03) M/mm3 Hgb 14.2 13.4 (11.8-15.2) gm/dl Hct 42.3 41.2 (35.5-45.6) % Plt Count 167 168 (140-440) K/mm3 Lymph # (Auto) 0.7 L (1.2-5.4) K/mm3 [place] # (Auto) 0.2 (0.0-0.8) K/mm3 Eos # (Auto) 0.0 (0.0-0.4) K/mm3 Baso # (Auto) 0.0 (0.0-0.1) K/mm3 Comprehensive Metabolic Panel 08/21/21 08/21/21 08/22/21 Range/Units 13:56 23:33 05:13 Sodium 141 137 136 L (137-145) mmol/L Potassium 4.6 4.8 4.8 (3.6-5.0) mmol/L Chloride 108.4 H 104.0 104.4 (98-107) mmol/L Carbon Dioxide 22 20 L 19 L (22-30) mmol/L BUN 21 H 21 H 22 H (9-20) mg/dL Creatinine 1.6 H 1.3 1.2 (0.8-1.3) mg/dL Glucose 95 97 121 H (75-100) mg/dL Calcium 9.6 9.3 9.3 (8.4-10.2) mg/dL AST 15 (5-40) units/L ALT 13 (7-56) units/L Alkaline Phosphatase 148 H (35-129) units/L Total Protein 7.6 (6.3-8.2) g/dL Albumin 4.1 (3.9-5) g/dL - Imaging and Cardiology Echo: report reviewed EKG interpretations - Telemetry EKG Rhythm: Sinus Rhythm - EKG Sinus rhythms and dysrhythmias: sinus rhythm Chamber hypertrophy or enlargement: left ventricular hypertro Assessment and Plan Patient is a 71-year-old male with a past medical history of chronic systolic heart failure s/p AICD, left anterior fascicular block, mitral regurgitation, Primary hypertension, gout, tobacco abuse, tricuspid regurgitation who presented with complaint of right-sided chest pain x3 days. Atypical chest pain Chronic systolic heart failure AICD in situ Hypertension Gout History of tobacco abuse Tricuspid regurgitation Mitral regurgitation Echo 11/18/2020: EF 20 to 25%, severe global hypokinesis of left ventricle, right ventricular systolic function is normal, left atrium is severely dilated moderate to severe mitral regurgitation, mitral regurgitation jet is posteriorly directed mild tricuspid regurgitation MPI 02/24/2017: No evidence of ischemia, dilated LV with global hypokinesis EF 20% Outpatient medications: Carvedilol 12.5 mg p.o. twice daily, Lasix 80 mg p.o. daily, valsartan 40 mg p.o. twice daily Plan: EKG shows sinus rhythm with APCs nonspecific IVCD and LVH. No acute ischemic changes. Troponins negative x3. Patient at this time currently denies chest pain. AMI ruled out Patient symptoms not appear to be of cardiac origin. At this time patient reports feeling well Resume outpatient medications Cardiac status otherwise stable. We will plan for outpatient ischemic eval Discussed plan of care with patient who verbalized understanding and acknowledgment Patient has been scheduled for stress test on 08/30/20172021 at 9:15 AM in our [place] location. Phone #[phone] Patient has a follow-up appointment with Dr. Burleson 09/18/2021 at 2 PM in our [place] location Patient seen in conjunction with Dr. Egan agrees to this plan of care - Patient Problems (1) Atypical chest pain Current Visit: Yes Status: Acute (2) Mitral regurgitation Current Visit: Yes Status: Acute (3) Chronic systolic heart failure Current Visit: Yes Status: Acute (4) AICD (automatic cardioverter/defibrillator) present Current Visit: Yes Status: Acute (5) Gout flare Current Visit: Yes Status: Acute Qualifiers: Gout site: hand Gout etiology: unspecified cause Laterality: unspecified laterality Qualified Code(s): M10.9 - Gout, unspecified (6) Hypertension Current Visit: No Status: Chronic Qualifiers: Hypertension type: primary hypertension Qualified Code(s): I10 - Essential (primary) hypertension
[2021-08-22] MEDS ORDERED: FUROSEMIDE 20 MG TAB PO SCH (18:00)
[2021-08-22] MEDS ORDERED: POTASSIUM CHLORIDE ER 10 MEQ TAB PO SCH (22:00)
[2021-08-22] MEDS ORDERED: TAMSULOSIN 0.4 MG CAP PO SCH (22:00)
[2021-08-22] MEDS ORDERED: COLCHICINE 0.6 MG TAB PO SCH (22:00)
[2021-08-23] MEDS ORDERED: FINASTERIDE 5 MG TAB PO SCH (10:00)
[2021-08-23] MEDS ORDERED: NON-FORMULARY EACH (Empagliflozin [Jardiance] 10 MG Tablet) PO SCH (10:00)
[2021-08-23] MEDS ORDERED: EPLERENONE 25 MG PO SCH (10:00)
--- NOTE | 2021-08-23 17:24 | Electrocardiograph Report ---
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
--- NOTE | 2021-08-23 17:49 | Electrocardiograph Report ---
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
== END 2021-08-22 15:05 | disposition home or self-care (01) | DRG 392 ==
LOC: ED 12:54 → INTOOBSV 23:22 → 4A 23:22 → OBSVTOIN 23:22 → 4A 08-22 06:06
PROVIDERS: ADMIT Internal Medicine Geriatric Medicine; ATTEND Internal Medicine
DX: K21.9 Gastro-esophageal reflux disease without esophagitis (principal); I50.22 Chronic systolic (congestive) heart failure; M10.9 Gout, unspecified; I25.10 Atherosclerotic heart disease of native coronary artery without angina pectoris; N40.0 Benign prostatic hyperplasia without lower urinary tract symptoms; I11.0 Hypertensive heart disease with heart failure; I50.9 Heart failure, unspecified; E78.5 Hyperlipidemia, unspecified; Z79.899 Other long term (current) drug therapy; I08.1 Rheumatic disorders of both mitral and tricuspid valves; Z95.810 Presence of automatic (implantable) cardiac defibrillator; Z87.891 Personal history of nicotine dependence; Z82.49 Family history of ischemic heart disease and other diseases of the circulatory system
CPT/HCPCS: 36415; 71046; 71275; 74176; 80048; 80053; 81001; 84484; 85007; 85025; 85379; 85610; 85730; 93005; 96374; G0378; J2270; J2785; Q9967